=== PATIENT | male | born 1930 | race Caucasian/White ===

== ENCOUNTER 2017-12-24 05:31 | Outpatient (CLI) | payer MEDICARE ==
[~2017-12-24] VITALS: Ht 170.2 cm; Wt 72.6 kg
[2017-12-24] MEDS ORDERED: LISI10TA2 PO (09:59)
[2017-12-24] MEDS ORDERED: OXYB5TAB9 PO (09:59)
[2017-12-24] MEDS ORDERED: OMEP20CA12 PO (11:02)
[2017-12-24] MEDS ORDERED: FURO20TA4 PO (11:02)
[2017-12-24] MEDS ORDERED: POTA10TA6 PO (11:02)
[2017-12-24] MEDS ORDERED: AMLO5TAB7 PO (11:02)
[2017-12-24] MEDS ORDERED: ABIR250T PO (11:05)
[2017-12-25] MEDS ORDERED: CLIN300C3 PO (11:43)
== END 2017-12-24 11:10 | disposition home or self-care (01) ==
LOC: PREOP 05:31
PROVIDERS: ATTEND Otolaryngology Otolaryngology/Facial Plastic Surgery
DX: Z01.818 Encounter for other preprocedural examination (principal)

== ENCOUNTER 2017-12-25 07:40 | Day surgery (SDC) | payer MEDICARE ==
[~2017-12-25] VITALS: Ht 170.2 cm; Wt 72.6 kg
[~2017-12-25 07:40] MED LIST: ABIR250T PO; AMLO5TAB7 PO; FURO20TA4 PO; LISI10TA2 PO; OMEP20CA12 PO; OXYB5TAB9 PO; POTA10TA6 PO
--- OUTSIDE RECORDS SUMMARY | 2017-12-25 07:44 | XMS REPORT | Clinical Summary ---
Author Author [facility] Organization [facility] Address Unknown Phone Unavailable Care Team Providers Care Strike Out Machine Operator Name Role Phone Jesusita Green MD PCP Dieudonne Alberto MD [address] Campbell MD Unavailable Outpatient, Radiologist Unavailable Unavailable Source Comments Some departments are not documenting in the electronic medical record. If you do not see the information that you expected, contact Release of Information in the Health Information Management department at [phone] for further assistance in locating additional records.[facility] Allergies No Known Allergies Current Medications Prescription Sig. Disp. Refills Start End Date Status Date amLODIPine (NORVASC) 2.5 Take 2.5 mg by mouth Active mg tablet daily. omeprazole DR(+) Take 20 mg by mouth daily Active (PRILOSEC) 20 mg capsule before breakfast. lisinopril/hydrochlorothi Take 20 mg by mouth Active azide (ZESTORETIC) 20/25 daily. tablet 20 mg bicalutamide (CASODEX) 50 Take 50 mg by mouth Active mg tablet daily. Take at the same time every day. DOCOSAHEXANOIC ACID/EPA Take 360 mg by mouth. Active (FISH OIL PO) CALCIUM CARBONATE/VITAMIN Take 600 mg by mouth. Active D3 (CALCIUM + D PO) aspirin 81 mg chewable Take 81 mg by mouth Active tablet daily. 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 Family History Medical History Relation Name Comments High Cholesterol Brother High Cholesterol Father High Cholesterol Maternal Grandmother Relation Name Status Comments Brother Father Maternal Grandmother Social History Tobacco Use Types Packs/Day Years Used Date Never Smoker Smokeless Tobacco: Never Used Sex Assigned at Date Recorded Not on file Last Filed Vital Signs Vital Sign Reading Time Taken Blood Pressure 145/73 11/06/2015 8:38 AM CDT Pulse 58 11/06/2015 8:38 AM CDT Temperature 36.6 C (97.9 F) 11/06/2015 8:38 AM CDT Respiratory Rate 16 11/06/2015 8:38 AM CDT Oxygen Saturation 97% 11/06/2015 8:38 AM CDT Inhaled Oxygen - - Concentration Weight 76.2 kg (168 lb) 11/06/2015 8:38 AM CDT Height 172.7 cm (5' 7.99") 11/06/2015 8:38 AM CDT Body Mass Index 25.55 11/06/2015 8:38 AM CDT Plan of Treatment Health Maintenance Due Date Last Done Comments PHYSICAL (COMPREHENSIVE) 02/18/1939 EXAM PERTUSSIS VACCINE 02/18/1943 TETANUS VACCINE 02/18/1949 SHINGLES RECOMBINANT 02/18/1982 VACCINE (1 of 2) PNEUMONIA (PCV13/PPSV23) 02/18/1997 VACCINES (1 of 2 - PCV13) INFLUENZA VACCINE 01/18/2018 Results Not on filefrom Last 3 Months
--- OUTSIDE RECORDS SUMMARY | 2017-12-25 07:44 | XMS REPORT | Referral Summary ---
Author Author [facility] Organization [facility] Address Unknown Phone Unavailable Care Team Providers Care Manager Of Change Name Role Phone Jesusita Green PCP Encounter VC Date(s): 10/29/15 - 10/29/15 [facility] [address] [place] [address] Discharge Disposition: 01-Home or Self Care Attending Physician: Darrell Otero JR, MD Admitting Physician: Darrell Otero JR, MD Vital Signs Most recent to 1 oldest [Reference Range]: Temperature Temporal 36.8 degC Artery [36.3-37.8 (10/29/15 1:56 PM) degC] Peripheral Pulse 85 bpm Rate [60-100 bpm] (10/29/15 1:56 PM) Heart Rate Monitored 78 bpm [60-100 bpm] (10/29/15 3:05 PM) Respiratory Rate 18 br/min [14-20 br/min] (10/29/15 3:05 PM) Blood Pressure 120/81 mmHg [90-140/60-90 mmHg] (10/29/15 3:05 PM) Mean Arterial 93 mmHg Pressure, Cuff (10/29/15 3:05 PM) SpO2 96 % (10/29/15 3:05 PM) Problem List Condition Effective Dates Status Health Status Informant Hypertension(Confirm Active patient ed) Prostate Active patient cancer(Confirmed) Allergies, Adverse Reactions, Alerts No Known Medication Allergies Medications amLODIPine 5 mg, Oral, Daily, 0 Refill(s) Start Date: 10/29/15 Status: Ordered aspirin 81 mg, Oral, Daily, 0 Refill(s) Start Date: 10/29/15 Status: Ordered bicalutamide 50 mg, Oral, q24hr, 0 Refill(s) Start Date: 10/29/15 Status: Ordered Calcium 600+D 2 tablets, Oral, Daily, 0 Refill(s) Start Date: 10/29/15 Status: Ordered Fish Oil 360 mg, Oral, Daily, 0 Refill(s) Start Date: 10/29/15 Status: Ordered lisinopril-hydrochlorothiazide 20 mg-25 mg oral tablet 0.5 tabs, Oral, Daily, # 30 tabs, 0 Refill(s) Start Date: 10/29/15 Status: Ordered omeprazole 20 mg, Oral, Daily, 0 Refill(s) Start Date: 10/29/15 Status: Ordered potassium chloride 20 mEq oral tablet, extended release 20 mEq 1 tabs, Oral, Daily, # 180 tabs, 0 Refill(s) Start Date: 10/29/15 Status: Ordered Results No data available for this section Immunizations No data available for this section Procedures Procedure Date Related Diagnosis Body Site Insertion Dialysis Catheter1 10/29/15 hernia repair removal of right eye steel removed from right eye2 1auto-populated from documented surgical case 2approx 60 years Social History Social History Type Response Smoking Status Never smoker Assessment and Plan No data available for this section
--- OUTSIDE RECORDS SUMMARY | 2017-12-25 07:46 | XMS REPORT ---
Author Edmund Fuentes [facility] Address [address] [place], [place] [id number] Care Team Providers Care Pv Installer Tech Name Role Phone Edmund Galeana PCP Emory Tony PreferredProvider Allergies and Adverse Reactions Name Reaction Notes NO KNOWN DRUG ALLERGIES Plan of Treatment Planned Activity Comments Planned Date Planned Time Plan/Goal PSA TOTAL 04/03/2015 12:00 AM BMP 04/22/2012 12:00 AM PSA total 11/22/2014 12:00 AM Medications Active Name Start Date Estimated Completion Date SIG Comments aspirin 81 mg oral tablet,delayed release (DR/EC) take 1 tablet (81 mg) by oral route once daily Calcium 500 + D 500 mg(1,250mg) -400 unit oral tablet take 1 tablet by oral route daily Zytiga 250 mg oral tablet take 4 tablets (1,000 mg) by oral route once daily ; swallow whole. Do not eat any food for at least 2 hrs before or 1 hr after dose prednisone 5 mg oral tablet take 1 tablet (5 mg) by oral route 2 times per day amlodipine 5 mg oral tablet 04/10/2017 04/05/2018 take 1 tablet (5 mg) by oral route once daily for 90 days furosemide 20 mg oral tablet 04/10/2017 04/05/2018 take 1 tablet (20 mg) by oral route once daily for 90 days Klor-Con 10 10 mEq oral tablet extended release 04/10/2017 04/05/2018 take 1 tablet (10 meq) by oral route once daily with food for 90 days omeprazole 20 mg oral capsule,delayed release(DR/EC) 04/10/2017 07/04/2018 TAKE 1 CAPSULE BY MOUTH ONCE DAILY simvastatin 20 mg oral tablet 04/22/2017 04/12/2019 TAKE 1/2 TABLET BY MOUTH DAILY FOR CHOLESTEROL oxybutynin chloride 5 mg oral tablet 05/25/2017 11/21/2017 TAKE INSTRUCTED BY PHYSICIAN metoclopramide HCl 10 mg oral tablet take 1 tablet by oral route 3 times a day (before meals) Name Start Date Expiration Date SIG Comments Zithromax Z-Justin 250 mg oral tablet 07/06/2009 07/16/2009 take 2 tablets (500 mg) by oral route once daily for 1 day then 1 tablet (250 mg) by oral route once daily for 4 days azithromycin 250 mg oral tablet 07/10/2009 07/15/2009 TAKE 2 TABLETS FIRST DOSE. THEN TAKE ONE TABLET ONCE DAILY TILL ALL TAKEN. Benicar HCT 40-25 mg oral tablet 08/02/2009 12/30/2009 take 1 tablet by oral route once daily acyclovir 800 mg oral tablet 12/19/2009 12/29/2009 take 1 tablet by oral route 5 X for 10 days Medrol (Justin) 4 mg oral tablets,dose pack 12/19/2009 12/24/2009 take as directed for 5 days Bactrim DS 800-160 mg oral tablet 03/25/2011 04/01/2011 take 1 tablet by oral route every 12 hours for 7 days Levaquin 500 mg oral tablet 02/13/2012 02/20/2012 take 1 tablet (500 mg) by oral route once daily for 7 days lisinopril-hydrochlorothiazide 20-25 mg oral tablet 02/13/2012 05/08/2013 take 1 tablet by oral route once daily for 90 days Klor-Con 10 10 mEq oral tablet extended release 04/22/2012 06/21/2012 take 1 tablet by oral route daily for 30 days Tessalon Perles 100 mg oral capsule 10/27/2012 take 1 capsule by oral route 3 times a day as needed Augmentin 875-125 mg oral tablet 10/27/2012 11/06/2012 take 1 tablet by oral route every 12 hours for 10 days Medrol (Justin) 4 mg oral tablets,dose pack 10/27/2012 11/08/2012 take as directed for 6 days Claritin 10 mg oral tablet 11/11/2012 take 1 tablet (10 mg) by oral route once daily Flomax 0.4 mg oral capsule,extended release 24hr 11/11/2012 take 1 capsule (0.4 mg) by oral route once daily 1/2 hour following the same meal each day simvastatin 20 mg oral tablet 04/21/2012 07/20/2012 TAKE 1 TABLET BY MOUTH AT BEDTIME simvastatin 20 mg oral tablet 05/02/2013 TAKE 1 TABLET BY MOUTH AT BEDTIME Casodex 50 mg oral tablet 08/13/2015 01/10/2016 take 1 tablet (50 mg) by oral route once daily for 30 days Linwood 5-325 mg oral tablet take 1 tablet by oral route every 4 hours as needed for pain Levaquin 750 mg oral tablet 09/29/2017 10/04/2017 take 1 tablet (750 mg) by oral route once daily for 5 days albuterol sulfate 2.5 mg /3 mL (0.083 %) inhalation solution for nebulization 09/29/2017 10/13/2017 inhale 3 milliliters (2.5 mg) by nebulization route 3 times per day for 14 days Discontinued Name Start Date Discontinued Date SIG Comments Lisinopril-Hydrochlorothiazide Oral 07/06/2009 Kapidex 60 mg oral capsule,biphase delayed releas 11/12/2009 01/08/2011 take 1 capsule (60 mg) by oral route once daily zolpidem 10 mg oral tablet 01/08/2011 03/25/2011 TAKE 1 TABLET BY MOUTH EVERY DAY AT BEDTIME FOR INSOMNIA promethazine-codeine 6.25-10 mg/5 mL oral syrup 03/25/2011 04/16/2011 take 5 milliliters by oral route every 6 hours as needed, not to exceed 30 mL in 24 hours Zofran (as hydrochloride) 4 mg oral tablet 04/16/2011 take 1 tab every 8hrs prn allopurinol 100 mg oral tablet 12/06/2015 take 1 tablet (100 mg) by oral route once daily lisinopril-hydrochlorothiazide 20-25 mg oral tablet 05/16/2013 04/10/2017 TAKE 1 TABLET BY MOUTH DAILY amlodipine 2.5 mg oral tablet 04/10/2017 take 1 tablet (2.5 mg) by oral route once daily bicalutamide 50 mg oral tablet 04/10/2017 take 1 tablet (50 mg) by oral route once daily Fish Oil [place] 3-6-9 300-1,000 mg oral capsule,delayed release(DR/EC) 04/10 take 1 capsule by oral route daily potassium chloride 20 mEq oral tablet extended release 04/10/2017 take 1 tablet (20 meq) by oral route once daily with food Problem List Description Status Onset Hyperlipidemia Active Hypertension Active Malignant neoplasm prostate Active dx-2009 Elevated prostate specific antigen (PSA) Active 11/22/2014 Adenocarcinoma of prostate, stage 4 Active 12/26/2015 Frequency of micturition Active 07/08/2016 Nocturia Active 07/08/2016 Urge urinary incontinence Active 08/13/2016 Incontinence Active 09/02/2016 SCC (squamous cell carcinoma) Active 10/30/2017 Arm lesion Active 10/30/2017 Vital Signs Date Time BP-Sys(mm[Hg] BP-Jeanne(mm[Hg]) HR(bpm) RR(rpm) Temp WT HT HC BMI BSA BMI Percentile O2 Sat(%) 11/13/2017 8:43:00 AM 125 mmHg 72 mmHg 67 bpm 20 rpm 97.2 F 168.5 lbs 67 in 26.3906 kg/m 1.9008 m 10/30/2017 11:11:00 AM 114 mmHg 71 mmHg 82 bpm 20 rpm 97.8 F 169 lbs 67 in 26.47 kg/m2 1.90 m2 09/29/2017 9:29:00 AM 120 mmHg 80 mmHg 98 bpm 20 rpm 97.5 F 172.125 lbs 68 in 26.1712 kg/m 1.9354 m 98 % 09/23/2017 10:01:00 AM 152 mmHg 88 mmHg 85 bpm 20 rpm 97.5 F 172 lbs 68 in 26.1522 kg/m 1.93 m2 97 % 09/23/2017 8:49:00 AM 130 mmHg 82 mmHg 78 bpm 18 rpm 97.3 F 173 lbs 68 in 26.30 kg/m2 1.9403 m 87 % 09/22/2017 8:23:00 AM 130 mmHg 78 mmHg 82 bpm 20 rpm 97.4 F 173 lbs 68 in 26.3043 kg/m 1.94 m2 96 % 04/10/2017 10:26:00 AM 110 mmHg 80 mmHg 92 bpm 16 rpm 98.4 F 176 lbs 68 in 26.76 kg/m2 1.96 m2 97 % 08/13/2016 9:48:00 AM 134 mmHg 98 mmHg 98 bpm 20 rpm 97 F 180 lbs 68 in 27.3686 kg/m 1.9792 m 96 % 07/08/2016 8:07:00 AM 122 mmHg 72 mmHg 85 bpm 18 rpm 97.1 F 175 lbs 68 in 26.61 kg/m2 1.95 m2 98 % 12/07/2015 11:22:00 AM 100 mmHg 73 mmHg 100 bpm 16 rpm 97.4 F 169 lbs 68 in 25.6961 kg/m 1.9178 m 11/22/2014 10:03:00 AM 175 lbs 68 in 26.61 kg/m2 1.95 m2 08/15/2013 9:02:00 AM 140 mmHg 80 mmHg 88 bpm 16 rpm 96.2 F 184 lbs 68 in 27.9768 kg/m 2.0011 m 94 % 11/11/2012 3:16:00 PM 128 mmHg 82 mmHg 81 bpm 18 rpm 96.4 F 181 lbs 68 in 27.52 kg/m2 1.98 m2 97 % 10/27/2012 8:53:00 AM 130 mmHg 93 mmHg 95 bpm 18 rpm 97.7 F 183 lbs 68 in 27.8248 kg/m 1.9956 m 97 % 04/22/2012 10:02:00 AM 130 mmHg 80 mmHg 97 bpm 18 rpm 97.8 F 181.375 lbs 68 in 27.58 kg/m2 1.99 m2 97 % 02/13/2012 8:36:00 AM 136 mmHg 84 mmHg 72 bpm 18 rpm 97.6 F 185 lbs 68 in 28.1289 kg/m 2.0065 m 04/16/2011 9:03:00 AM 124 mmHg 82 mmHg 77 bpm 16 rpm 96.7 F 182.25 lbs 68 in 27.71 kg/m2 1.99 m2 97 % 03/25/2011 10:03:00 AM 138 mmHg 91 mmHg 20 bpm 78 rpm 97.4 F 187.375 lbs 67 in 29.3468 kg/m 2.0044 m 98 % 01/08/2011 8:49:00 AM 118 mmHg 70 mmHg 64 bpm 20 rpm 98.1 F 183 lbs 68 in 27.82 kg/m2 2.00 m2 12/19/2009 2:28:00 PM 130 mmHg 90 mmHg 80 bpm 20 rpm 96.4 F 188 lbs 12/13/2009 9:12:00 AM 130 mmHg 80 mmHg 68 bpm 20 rpm 97.3 F 188 lbs 11/12/2009 10:47:00 AM 108 mmHg 78 mmHg 88 bpm 18 rpm 96.3 F 183 lbs 68 in 27.8248 kg/m 1.9956 m 96 % 07/06/2009 8:34:00 AM 122 mmHg 74 mmHg 84 bpm 96.4 F 185 lbs 06/25/2009 10:20:00 AM 132 mmHg 80 mmHg 72 bpm 16 rpm 97.1 F 183 lbs 06/07/2009 10:20:00 AM 138 mmHg 90 mmHg 76 bpm 18 rpm 96.3 F 183 lbs Social History Name Description Comments Tobacco Never smoker denies alcohol use Lives with spouse peñaloza History of Procedures Date Ordered Description Order Status 01/02/2011 12:00 AM ROUTINE VENIPUNCTURE Reviewed 01/02/2011 12:00 AM COMPLETE CBC W/AUTO DIFF WBC Reviewed 01/02/2011 12:00 AM COMPREHEN METABOLIC PANEL Reviewed 01/02/2011 12:00 AM LIPID PANEL Reviewed 01/02/2011 12:00 AM ASSAY OF PSA TOTAL Reviewed 03/27/2015 12:00 AM ASSAY OF PSA TOTAL Reviewed 07/30/2015 12:00 AM ASSAY OF PSA TOTAL Reviewed 06/07/2009 12:00 AM COMPLETE CBC W/AUTO DIFF WBC Reviewed 06/07/2009 12:00 AM COMPREHEN METABOLIC PANEL Reviewed 06/07/2009 12:00 AM LIPID PANEL Reviewed 04/16/2011 12:00 AM ASSAY OF BLOOD/URIC ACID Reviewed 07/08/2016 12:00 AM US URINE CAPACITY MEASURE Reviewed 07/08/2016 9:04 AM URINALYSIS AUTO W/O SCOPE Reviewed 08/11/2016 12:00 AM ASSAY OF PSA TOTAL Reviewed 08/13/2016 10:31 AM URINALYSIS AUTO W/O SCOPE Reviewed 05/11/2017 12:00 AM ASSAY OF PSA TOTAL Reviewed 09/22/2017 12:00 AM LIPID PANEL Reviewed 09/23/2017 12:00 AM Lupron 7.5mg Reviewed 09/29/2017 12:00 AM RADIOLOGIC EXAM CHEST 2 VIEWS FRONTAL&LATERAL Returned 09/29/2017 12:00 AM Solu-Medrol, Up to 125 Mg [facility]# 0097-4133-85 Reviewed 08/15/2013 12:00 AM THER/PROPH/DIAG INJ SC/IM Reviewed 08/15/2013 12:00 AM Decadron, Per 1 Mg [facility]# [address]-68 Reviewed 08/15/2013 12:00 AM Depo-Medrol, Per 80 Mg [facility]#7185-6586-67 Reviewed 11/07/2013 3:16 PM THER/PROPH/DIAG INJ SC/IM Reviewed 11/07/2013 3:16 PM Lupron Depot 3.75 Mg Reviewed 03/13/2014 12:00 AM ASSAY OF PSA TOTAL Reviewed 07/17/2014 12:00 AM ASSAY OF PSA TOTAL Reviewed Results Summary Date and Description Results 06/07/2009 10:54 AM HDL 41.0 mg/dLTRIGLYCERIDES 242.0 mg/dLLDL (CALC) 102.0 mg/ dLHDL 41.0 mg/dLTRIGLYCERIDES 242.0 mg/dLTOT CHOL/HDL 4.7 CHOLESTEROL 191 mg/ dLGLUCOSE 96 SODIUM 144.0 mmol/LPOTASSIUM 3.50 mmol/LCHLORIDE 101.0 mmol/LCO2 29.0 mmol/LBUN 20.0 mg/dLCREATININE 0.80 mg/dLSGOT/AST 25.0 IU/LSGPT/ALT 21.0 IU /LALK PHOS 87.0 IU/LTOTAL PROTEIN 6.60 g/dLALBUMIN 4.20 g/dLTOTAL BILI 0.70 mg/ dLCALCIUM 9.80 mg/dLAGE 79 GFR NonAA 94 GFR AA 114 eGFR >60 mL/min/1.73 meGFR AA * >60 01/06/2011 8:06 AM GLUCOSE 99.0 mg/dLSODIUM 139.0 mmol/LPOTASSIUM 3.40 mmol/ LCHLORIDE 102.0 mmol/LCO2 28.0 mmol/LBUN 20.0 mg/dLCREATININE 0.90 mg/dLSGOT/ AST 14.0 IU/LSGPT/ALT 12.0 IU/LALK PHOS 90.0 IU/LTOTAL PROTEIN 6.60 g/dLALBUMIN 3.90 g/dLTOTAL BILI 0.70 mg/dLCALCIUM 9.10 mg/dLAGE 80 GFR NonAA 82 GFR AA 99 eGFR >60 mL/min/1.73 m2eGFR AA* >60 TRIGLYCERIDES 176.0 mg/dLCHOLESTEROL 150.0 mg/dLHDL 35.0 mg/dLTOT CHOL/HDL 4.3 LDL (CALC) 80.0 mg/dLWBC 8.1 RBC 4.25 HGB 14.50 g/dLHCT 41.10 %MCV 97.0 fLMCH 34.10 pgMCHC 35.30 g/dLRDW SD 49 RDW CV 14.0 %MPV 9.80 fLPLT 136 NRBC# 0.00 NRBC% 0.0 %NEUT 72.80 %%LYMP 18.70 %%MONO 6.70 %%EOS 1.60 %%BASO 0.20 %#NEUT 5.88 #LYMP 1.51 #MONO 0.54 #EOS 0.13 #BASO 0.02 MANUAL DIFF NOT IND PSA TOTAL 0.680 ng/mL 04/16/2011 10:00 AM URIC ACID 6.8 mg/dL 07/11/2014 8:48 AM PSA TOTAL 4.030 ng/mL 11/14/2014 4:08 PM PSA TOTAL 1.380 ng/mL 08/07/2015 9:10 AM PSA TOTAL 3.70 ng/mL 07/08/2016 9:04 AM Clarity Ur CLEAR Color Ur --- Glucose Ur-sCnc -VE Bilirub Ur Ql Strip -VE Ketones Ur Ql Strip -VE Sp Gr Ur Qn 1015 Hgb Ur Ql Strip -VE pH Ur-LsCnc 5.5 Prot Ur Ql Strip -VE Urobilinogen Ur-mCnc -VE Nitrite Ur Ql Strip - VE WBC Est Ur Ql Strip -VE 08/11/2016 11:00 AM PSA TOTAL 0.450 ng/mL 08/13/2016 10:31 AM Clarity Ur CLEAR Color Ur ---- Glucose Ur-sCnc -VE Bilirub Ur Ql Strip -VE Ketones Ur Ql Strip -VE Sp Gr Ur Qn 1015 Hgb Ur Ql Strip -VE pH Ur-LsCnc 5.5 Prot Ur Ql Strip -VE Urobilinogen Ur-mCnc -VE Nitrite Ur Ql Strip - VE WBC Est Ur Ql Strip -VE 05/15/2017 9:26 AM PSA TOTAL 0.420 ng/mL 09/29/2017 8:26 AM TRIGLYCERIDES 132.0 mg/dLCHOLESTEROL 144.0 mg/dLHDL 48.0 mg/ dLTOT CHOL/HDL 3.0 LDL (CALC) 70.0 mg/dL History Of Immunizations Name Date Admin Mfg Name Mfg Code Trade Name Lot# Route Inj Vis Given Vis Pub CVX Influenza 02/18/2017 GlaxoSmithKline SKB FLUZONE-HIGH DOSE Not Entered Not Entered 04/20/2018 04/20/2018 135 Pneumococcal 01/16/2016 Not Entered NE PREVNAR 13 Not Entered Not Entered 04/10/2017 04/20/2018 133 History of Past Illness Name Date of Onset Comments Hypertension Hyperlipidemia Hypertension Jun 07 2009 10:23AM Hyperlipidemia, unspecified Jun 07 2009 10:23AM Osteoarthritis Jun 25 2009 10:28AM Upper Respiratory Infection Jul 06 2009 8:37AM Hypertension Jul 06 2009 8:37AM Esophageal Reflux Nov 12 2009 11:01AM Hypertension Dec 13 2009 9:13AM Esophageal Reflux Dec 13 2009 9:13AM Herpes Zoster Dec 19 2009 2:34PM Malignant neoplasm prostate dx-2009 Elevated prostate specific antigen (PSA) 11/22/2014 Adenocarcinoma of prostate, stage 4 12/26/2015 Frequency of micturition 07/08/2016 Nocturia 07/08/2016 Urge urinary incontinence 08/13/2016 Incontinence 09/02/2016 Hypertension Jan 02 2011 8:42AM Hyperlipidemia Jan 02 2011 8:42AM Prostate Cancer Jan 02 2011 8:42AM Hypertension Jan 08 2011 8:50AM Hyperlipidemia, unspecified Jan 08 2011 8:50AM Esophageal Reflux Jan 08 2011 8:50AM SCC (squamous cell carcinoma) 10/30/2017 Arm lesion 10/30/2017 left forearm Left Otitis Media, Acute Mar 25 2011 10:09AM Upper Respiratory Infections Mar 25 2011 10:09AM Gout Apr 16 2011 9:05AM Hypertension Feb 13 2012 8:40AM Sinusitis Feb 13 2012 8:40AM Hypokalemia Apr 22 2012 10:05AM Upper Respiratory Infections Oct 27 2012 8:58AM Allergic Rhinitis Nov 11 2012 3:19PM Nocturia Nov 11 2012 3:19PM Allergic Rhinitis Aug 15 2013 9:04AM Cancer of prostate Mar 13 2014 9:08AM Cancer of prostate Jul 17 2014 9:29AM Cancer of prostate Jul 17 2014 9:33AM Malignant neoplasm prostate Nov 22 2014 10:04AM Elevated prostate specific antigen (PSA) Nov 22 2014 10:04AM Cancer of prostate Nov 22 2014 2:06PM Elevated PSA Mar 27 2015 11:19AM Cancer of prostate Mar 27 2015 11:19AM Elevated PSA Apr 03 2015 10:07AM Cancer of prostate Apr 03 2015 10:07AM Adenocarcinoma of prostate Apr 03 2015 10:06AM Adenocarcinoma of prostate Jul 30 2015 9:48AM Elevated prostate specific antigen (PSA) Jul 30 2015 9:48AM Adenocarcinoma of prostate Aug 13 2015 2:27PM Abnormal PSA Aug 13 2015 2:27PM Prostate cancer Dec 07 2015 11:25AM Prostate cancer Dec 07 2015 11:33AM Adenocarcinoma of prostate, stage 4 Dec 26 2015 8:31AM Adenocarcinoma of prostate Apr 29 2016 11:15AM Urinary frequency Jul 08 2016 8:37AM Nocturia Jul 08 2016 8:37AM Nocturia Jul 08 2016 8:10AM Frequency of micturition Jul 08 2016 8:10AM Urgency of urination Jul 08 2016 8:10AM Adenocarcinoma of prostate Jul 08 2016 8:10AM Frequency of micturition Jul 10 2016 8:33PM Nocturia Jul 10 2016 8:33PM Adenocarcinoma of prostate Jul 10 2016 8:33PM Cancer of prostate Aug 11 2016 8:18AM Drug therapy Aug 11 2016 8:18AM Nocturia Aug 13 2016 9:52AM Urge urinary incontinence Aug 13 2016 9:52AM Adenocarcinoma of prostate Aug 13 2016 9:52AM Adenocarcinoma of prostate Sep 02 2016 11:24AM Frequency of micturition Sep 02 2016 11:24AM Urge incontinence of urine Sep 02 2016 11:24AM Adenocarcinoma of prostate Jan 13 2017 8:01AM Adenocarcinoma of prostate May 11 2017 3:14PM Adenocarcinoma of prostate May 19 2017 8:32AM Well adult exam Apr 10 2017 10:29AM Pure hypercholesterolemia Sep 22 2017 8:27AM Essential Hypertension Sep 22 2017 8:27AM Establishing care with new doctor, encounter for Sep 22 2017 8:27AM Prostate cancer Sep 23 2017 8:51AM Partial small bowel obstruction Sep 23 2017 10:02AM Acute bronchitis, unspecified organism Sep 29 2017 9:33AM Cough Sep 29 2017 9:33AM Arm lesion Oct 30 2017 11:18AM SCC (squamous cell carcinoma) Oct 30 2017 11:18AM Payers Insurance Name Company Name Plan Name Plan Number Policy Number Policy Group Number Start Date Medicare RHC Medicare RHC [id number] N/A [facility] [id number] Friday, 2008 Medicare Part A Medicare Part A [id number] N/A Medicare Part A Medicare - Lab/Xray [id number] N/A Medicare Part B Medicare Of [place] [id number] Thursday, January [id number] History of Encounters Visit Date Visit Type Provider 11/13/2017 Procedures Edmund Galeana DO 10/30/2017 Procedures Edmund Galeana DO 09/29/2017 Office visit Tierra Fox REPAIRER CONTROLLER TESTER 09/23/2017 Office visit Roland Levi MD 09/23/2017 Office visit Amadeo Nielsen MD 09/22/[address] Emory Tony MD 09/16/2017 Hospital Ginette Navarrete MD 09/16/2017 [facility] Roland Levi MD 05/19/2017 Office visit Juany Donahue MD 04/10/2017 Office visit Tammy Arvizu MD 01/13/2017 Office visit V John Donahue MD 09/02/2016 Procedures Juany Donahue MD 08/13/2016 Office visit V John Donahue MD 07/08/2016 Office visit Juany Donahue MD 04/29/2016 Office visit Juany Donahue MD 12/26/2015 Office visit Juany Donahue MD 12/07/2015 Procedures Edmund Galeana DO 08/13/2015 Office visit V John Donahue MD 08/07/2015 Voided V John Donahue MD 04/03/2015 Office visit Juany Donahue MD 11/22/2014 Office visit Juany Donahue MD 07/17/2014 Office visit Juany Donahue MD 03/13/2014 Office visit Juany Donahue MD 11/07/2013 Office visit Juany Donahue MD 09/19/2013 [facility] Ginette Navarrete MD 08/15/2013 Office visit Faizan Raphael REPAIRER CONTROLLER TESTER 11/11/2012 Office visit Yecenia Alexander REPAIRER CONTROLLER TESTER 10/27/2012 Office visit Celena Crane REPAIRER CONTROLLER TESTER 04/22/2012 Office visit Sean Shell MD 04/14/2012 [facility] Lola Paz MD 04/13/2012 [facility] Lola Paz MD 04/12/2012 [facility] Ginette Navarrete MD 04/12/2012 [facility] Lola Paz MD 02/13/2012 Office visit Sean Shell MD 04/16/2011 Office visit Apryl Branham MD 03/25/2011 Office visit Yecenia Alexander REPAIRER CONTROLLER TESTER 01/08/2011 Office visit Sean Shell MD 12/19/2009 Office visit Salima RODRIGUEZ 12/13/2009 Office visit Sean Shell MD 11/12/2009 Office visit Sean Shell MD 07/06/2009 Office visit Sean Shell MD 06/25/2009 Office visit Sean Shell MD 06/07/2009 Office visit Sean Shell MD
--- OUTSIDE RECORDS SUMMARY | 2017-12-25 07:47 | XMS REPORT ---
Author Edmund Fuentes [facility] Address [address] [place], [place] [id number] Care Team Providers Care Chips Screen Tender Name Role Phone Edmund Galeana PCP Emory [...] oral route once daily for 30 days [place] 5-325 mg oral tablet take 1 tablet [...] by oral route once daily Fish Oil [place] 3-6-9 300-1,000 mg oral capsule,delayed release(DR/EC) 04/10 [...] HC BMI BSA BMI Percentile O2 Sat(%) 10/30/2017 11:11:00 AM 114 mmHg 71 mmHg 82 bpm 20 rpm 97.8 F 169 lbs 67 in 26.4689 kg/m 1.9036 m 09/29/2017 9:29:00 AM 120 mmHg 80 mmHg 98 bpm 20 rpm 97.5 F 172.125 lbs 68 in 26.17 kg/m2 1.94 m2 98 % 09/23/2017 10:01:00 AM 152 mmHg 88 mmHg 85 bpm 20 rpm 97.5 F 172 lbs 68 in 26.1522 kg/m 1.9347 m 97 % 09/23/2017 8:49:00 AM 130 mmHg 82 mmHg 78 bpm 18 rpm 97.3 F 173 lbs 68 in 26.30 kg/m2 1.94 m2 87 % 09/22/2017 8:23:00 AM 130 mmHg 78 mmHg 82 bpm 20 rpm 97.4 F 173 lbs 68 in 26.3043 kg/m 1.9403 m 96 % 04/10/2017 10:26:00 AM 110 mmHg [...] 12:00 AM Solu-Medrol, Up to 125 Mg [facility]# 0533-2812-93 Reviewed 08/15/2013 12:00 AM THER/PROPH/DIAG INJ SC/IM Reviewed 08/15/2013 12:00 AM Decadron, Per 1 Mg [facility]# [address]-27 Reviewed 08/15/2013 12:00 AM Depo-Medrol, Per 80 Mg [facility]#6719-7878-41 Reviewed 11/07/2013 3:16 PM THER/PROPH/DIAG INJ SC/IM [...] Vis Given Vis Pub CVX Influenza 02/18/2017 GlaxoSmScreenheroine SKB FLUZONE-HIGH DOSE Not Entered Not Entered [...] Number Start Date Medicare RHC Medicare RHC [id number] N/A [facility] [id number] Friday, 2008 Medicare Part A Medicare Part A [id number] N/A Medicare Part A Medicare - Lab/Xray [id number] N/A Medicare Part B Medicare Of [place] [id number] Thursday, January 181996 History of Encounters Visit Date Visit Type Provider 10/30/2017 Procedures Edmund Galeana DO 09/29/2017 Office visit Tierra Fox POWER GENERATION TECHNICIAN 09/23/2017 Office visit Roland Levi MD 09/23/2017 Office visit Amadeo Nielsen MD 09/22/[address] Emory Tony MD 09/16/2017 [facility] Ginette Navarrete MD 09/16/2017 [facility] Roland Levi MD 05/19/2017 Office visit Juany Donahue MD 04/10/2017 Office visit Tammy Arvizu MD 01/13/2017 Office visit Juany Donahue MD 09/02/2016 Procedures Juany Donahue MD 08/13/2016 Office visit Juany Donahue MD 07/08/2016 Office visit Juany Donahue MD 04/29/2016 Office visit Juany Donahue MD 12/26/2015 Office visit Juany Donahue MD 12/07/2015 Procedures Edmund Galeana DO 08/13/2015 Office visit Juany Donahue MD 08/07/2015 Voided Juany Donahue MD 04/03/2015 Office visit Juany Donahue MD 11/22/2014 Office visit Juany Donahue MD 07/17/2014 Office visit Juany Donahue MD 03/13/2014 Office visit Juany Donahue MD 11/07/2013 Office visit Juany Donahue MD 09/19/2013 [facility] Ginette Navarrete MD 08/15/2013 Office visit Faizan Raphael APRN 11/11/2012 Office visit Yecenia Alexander POWER GENERATION TECHNICIAN 10/27/2012 Office visit Celena Crane POWER GENERATION TECHNICIAN 04/22/2012 Office visit Sean Shell MD 04/14/2012 Hospital Lola Paz MD 04/13/2012 [facility] Lola Paz MD 04/12/2012 [facility] Ginette Navarrete MD 04/12/2012 [facility] Lola Paz MD 02/13/2012 Office visit Sean Shell MD 04/16/2011 Office visit Apryl Branham MD 03/25/2011 Office visit Yecenia Alexander POWER GENERATION TECHNICIAN 01/08/2011 Office visit Sean hSell MD 12/19/2009 Office visit Salima RODRIGUEZ 12/13/2009 Office visit Sean Shell MD 11/12/2009 Office visit Sean Shell MD 07/06/2009 Office visit Sean Shell MD 06/25/2009 Office visit Sean Shell MD 06/07/2009 Office visit Sean Shell MD
--- OUTSIDE RECORDS SUMMARY | 2017-12-25 07:47 | XMS REPORT ---
Author Edmund Fuentes [facility] Address [address] [place], [place] [id number] Care Team Providers Care Plastics Engineer Name Role Phone Edmund Galeana PCP Emory [...] oral route once daily for 30 days [place] 5-325 mg oral tablet take 1 tablet [...] by oral route once daily Fish Oil [place] 3-6-9 300-1,000 mg oral capsule,delayed release(DR/EC) 04/10 [...] 12:00 AM Solu-Medrol, Up to 125 Mg [facility]# 2765-6101-97 Reviewed 08/15/2013 12:00 AM THER/PROPH/DIAG INJ SC/IM Reviewed 08/15/2013 12:00 AM Decadron, Per 1 Mg [facility]# [address]-48 Reviewed 08/15/2013 12:00 AM Depo-Medrol, Per 80 Mg [facility]#3044-5738-79 Reviewed 11/07/2013 3:16 PM THER/PROPH/DIAG INJ SC/IM [...] Vis Given Vis Pub CVX Influenza 02/18/2017 GlaxoSmNavitaine SKB FLUZONE-HIGH DOSE Not Entered Not Entered [...] Number Start Date Medicare RHC Medicare RHC [id number] [id number] Friday, 2008 Medicare Part A Medicare Part A [id number] N/A Medicare Part A Medicare - Lab/Xray [id number] N/A Medicare Part B Medicare Of [place] [id number] Thursday, January 181996 History of Encounters Visit Date Visit Type Provider 10/30/2017 Procedures Edmund Galeana DO 09/29/2017 Office visit Tierra Fox REHAB TRAINER 09/23/2017 Office visit Roland Levi MD 09/23/2017 Office visit Amadeo Nielsen MD 09/22/[address] Emory Tony MD 09/16/2017 [facility] Ginette Navarrete MD 09/16/2017 [facility] Roland Levi MD 05/19/2017 Office [...] 11/07/2013 Office visit Juany Donahue MD 09/19/2013 [facility] Ginette Navarrete MD 08/15/2013 Office visit Faizan Raphael APRN 11/11/2012 Office visit Yecenia Alexander REHAB TRAINER 10/27/2012 Office visit Celena Crane REHAB TRAINER 04/22/2012 Office visit Sean Shell MD 04/14/2012 Hospital Lola Paz MD 04/13/2012 [facility] Lola Paz MD 04/12/2012 [facility] Ginette Navarrete MD 04/12/2012 [facility] Lola Paz MD 02/13/2012 Office visit Sean Shell MD 04/16/2011 Office visit Apryl Branham MD 03/25/2011 Office visit Yecenia Alexander REHAB TRAINER 01/08/2011 Office visit Sean Shell MD 12/19/2009 Office visit Salima RODRIGUEZ 12/13/2009 Office visit Sean Shell MD 11/12/2009 Office visit Sean Shell MD 07/06/2009 Office visit Sean Shell MD 06/25/2009 Office visit Sean Shell MD 06/07/2009 Office visit Sean Shell MD
--- OUTSIDE RECORDS SUMMARY | 2017-12-25 07:48 | XMS REPORT ---
Author Edmund Fuentes [facility] Address [address] [place], [place] [id number] Care Team Providers Care Technical Operations Manager Name Role Phone Edmund Galeana PCP Emory [...] oral route once daily for 30 days [place] 5-325 mg oral tablet take 1 tablet [...] by oral route once daily Fish Oil [place] 3-6-9 300-1,000 mg oral capsule,delayed release(DR/EC) 04/10 [...] to 125 Mg [facility]# 0128-7622-67 Reviewed 08/15/2013 12:00 AM THER/PROPH/DIAG INJ SC/IM Reviewed 08/15/2013 12:00 AM Decadron, Per 1 Mg [facility]# [address]-78 Reviewed 08/15/2013 12:00 AM Depo-Medrol, Per 80 Mg [facility]#2137-1832-22 Reviewed 11/07/2013 3:16 PM THER/PROPH/DIAG INJ SC/IM [...] Vis Given Vis Pub CVX Influenza 02/18/2017 [facility] SKB FLUZONE-HIGH DOSE Not Entered Not Entered [...] Number Start Date Medicare RHC Medicare RHC [id number] [id number] Friday, 2008 Medicare Part A Medicare Part A [id number] N/A Medicare Part A Medicare - Lab/Xray [id number] N/A Medicare Part B Medicare Of [place] [id number] Thursday, January 181996 History of Encounters Visit Date Visit Type Provider 10/30/2017 Procedures Edmund Galeana DO 09/29/2017 Office visit Tierra Fox CLINICAL REVIEW NURSE 09/23/2017 Office visit Roland Levi MD 09/23/2017 Office visit Amadeo Nielsen MD 09/22/[address] Emory Tony MD 09/16/2017 [facility] Ginette Navarrete MD 09/16/2017 [facility] Roland Levi MD 05/19/2017 Office visit [...] 11/07/2013 Office visit Juany Donahue MD 09/19/2013 [facility] Ginette Navarrete MD 08/15/2013 Office visit Faizan Raphael APRN 11/11/2012 Office visit Yecenia Alexander CLINICAL REVIEW NURSE 10/27/2012 Office visit Celena Crane CLINICAL REVIEW NURSE 04/22/2012 Office visit Sean Shell MD 04/14/2012 Hospital Lola Paz MD 04/13/2012 [facility] Lola Paz MD 04/12/2012 [facility] Ginette Navarrete MD 04/12/2012 [facility] Lola Paz MD 02/13/2012 Office visit Sean Shell MD 04/16/2011 Office visit Apryl Branham MD 03/25/2011 Office visit Yecenia Alexander CLINICAL REVIEW NURSE 01/08/2011 Office visit Sean Shell MD 12/19/2009 Office visit Salima RODRIGUEZ 12/13/2009 Office visit Sean Shell MD 11/12/2009 Office visit Sean Shell MD 07/06/2009 Office visit Sean Shell MD 06/25/2009 Office visit Sean Shell MD 06/07/2009 Office visit Sean Shell MD
--- OUTSIDE RECORDS SUMMARY | 2017-12-25 07:49 | XMS REPORT ---
Author Edmund Fuentes [facility] Address [address] [place], [place] [phone] Care Team Providers Care Process Validation Engineer Name Role Phone Edmund Galeana PCP [...] oral route once daily for 30 days [place] 5-325 mg oral tablet take 1 tablet [...] by oral route once daily Fish Oil [place] 3-6-9 300-1,000 mg oral capsule,delayed release(DR/EC) 04/10 [...] 12:00 AM Solu-Medrol, Up to 125 Mg [facility]# 4294-7749-73 Reviewed 08/15/2013 12:00 AM THER/PROPH/DIAG INJ SC/IM Reviewed 08/15/2013 12:00 AM Decadron, Per 1 Mg [facility]# [address]-90 Reviewed 08/15/2013 12:00 AM Depo-Medrol, Per 80 Mg [facility]#5487-7846-51 Reviewed 11/07/2013 3:16 PM THER/PROPH/DIAG INJ SC/IM [...] Vis Given Vis Pub CVX Influenza 02/18/2017 GlaxoSmGroove Biopharmaine SKB FLUZONE-HIGH DOSE Not Entered Not Entered [...] Number Start Date Medicare RHC Medicare RHC [id number] [id number] Friday, 2008 Medicare Part A Medicare Part A [id number] N/A Medicare Part A Medicare - Lab/Xray [id number] N/A Medicare Part B Medicare Of [place] [id number] Thursday, January 181996 History of Encounters Visit Date Visit Type Provider 10/30/2017 Procedures Edmund Galeana DO 09/29/2017 Office visit Tierra Fox PHYSICAL THERAPY MANAGER 09/23/2017 Office visit Roland Levi MD 09/23/2017 Office visit Amadeo Nielsen MD 09/22/[address] Emory Tony MD 09/16/2017 [facility] Ginette Navarrete MD 09/16/2017 [facility] Roland Levi MD 05/19/2017 Office visit [...] 11/07/2013 Office visit Juany Donahue MD 09/19/2013 [facility] Ginette Navarrete MD 08/15/2013 Office visit Faizan Raphael APRN 11/11/2012 Office visit Yecenia Alexander PHYSICAL THERAPY MANAGER 10/27/2012 Office visit Celena Crane PHYSICAL THERAPY MANAGER 04/22/2012 Office visit Sean Shell MD 04/14/2012 Hospital Lola Paz MD 04/13/2012 [facility] Lola Paz MD 04/12/2012 [facility] Ginette Navarrete MD 04/12/2012 [facility] Lola Paz MD 02/13/2012 Office visit Sean Shell MD 04/16/2011 Office visit Apryl Branham MD 03/25/2011 Office visit Yecenia Alexander PHYSICAL THERAPY MANAGER 01/08/2011 Office visit Sean Shell MD 12/19/2009 Office visit Salima RODRIGUEZ 12/13/2009 Office visit Sean Shell MD 11/12/2009 Office visit Sean Shell MD 07/06/2009 Office visit Sean Shell MD 06/25/2009 Office visit Sean Shell MD 06/07/2009 Office visit Sean Shell MD
[2017-12-25 07:50] VITALS: BP 128/83
--- OUTSIDE RECORDS SUMMARY | 2017-12-25 07:50 | XMS REPORT ---
Author Author Tammy Arvizu Organization [facility] Address [address] [place], [place] [address] Care Team Providers Care Groundskeeper Name Role Phone Tammy Arvizu PCP Tammy Arvizu PreferredProvider Allergies and Adverse Reactions Name Reaction Notes NO KNOWN DRUG ALLERGIES Plan of Treatment Planned Activity Comments Planned Date Planned Time Plan/Goal PSA TOTAL 04/03/2015 12:00 AM PSA TOTAL 05/11/2017 12:00 AM BMP 04/22/2012 12:00 AM PSA [...] TAKE 1 CAPSULE BY MOUTH ONCE DAILY oxybutynin chloride 5 mg oral tablet 04/10/2017 04/05/2018 TAKE INSTRUCTED BY PHYSICIAN for 90 days simvastatin 20 mg oral tablet 04/22/2017 04/12/2019 TAKE 1/2 TABLET BY MOUTH DAILY FOR CHOLESTEROL Name Start Date Expiration Date SIG Comments [...] oral route once daily for 30 days [place] 5-325 mg oral tablet take 1 tablet by oral route every 4 hours as needed for pain Discontinued Name Start Date Discontinued Date SIG [...] by oral route once daily Fish Oil [place] 3-6-9 300-1,000 mg oral capsule,delayed release(DR/EC) 04/10 take 1 capsule by oral route daily potassium chloride 20 mEq oral tablet extended release 04/10/2017 take 1 tablet (20 meq) by oral route once daily with food Problem List Description Status Onset Hyperlipidemia Active Hypertension Active Malignant neoplasm prostate Active dx-2008 Elevated prostate specific antigen (PSA) Active 11/22/2014 Prostate cancer Active 12/07/2015 Adenocarcinoma of prostate, stage 4 Active 12/26/2015 Adenocarcinoma of prostate Active 04/29/2016 Urgency of urination Active 07/08/2016 Frequency of micturition Active 07/08/2016 Nocturia Active 07/08/2016 Urge urinary incontinence Active 08/13/2016 Incontinence Active 09/02/2016 Urge incontinence of urine Active 09/02/2016 Vital Signs Date Time BP-Sys(mm[Hg] BP-Jeanne(mm[Hg]) HR(bpm) RR(rpm) Temp WT HT HC BMI BSA BMI Percentile O2 Sat(%) 04/10/2017 10:26:00 AM 110 mmHg 80 mmHg [...] rpm 96.3 F 183 lbs 68 in 27.82 kg/m2 1.9956 m 96 % 07/06/2009 8:34:00 AM [...] 10:31 AM URINALYSIS AUTO W/O SCOPE Reviewed 08/15/2013 12:00 AM THER/PROPH/DIAG INJ SC/IM Reviewed 08/15/2013 12:00 AM Decadron, Per 1 Mg [facility] 2[facility]# [address]-24 Reviewed 08/15/2013 12:00 AM Depo-Medrol, Per 80 Mg [facility]NOTE 2]#2915-6608-72 Reviewed 11/07/2013 3:16 PM THER/PROPH/DIAG INJ SC/IM [...] VE WBC Est Ur Ql Strip -VE History Of Immunizations Name Date Admin Mfg Name Mfg Code Trade Name Lot# Route Inj Vis Given Vis Pub CVX Influenza 02/18/2017 [place]i SKB Fluzone High-Dose Not Entered Not Entered 04/20/2018 04/20/2018 135 Pneumococcal 01/16/2016 Not Entered NE Prevnar 13 Not Entered Not Entered 04/10/2017 04/20/2018 [...] Dec 19 2009 2:34PM Malignant neoplasm prostate dx-2008 Elevated prostate specific antigen (PSA) 11/22/2014 Prostate cancer 12/07/2015 Adenocarcinoma of prostate, stage 4 12/26/2015 Adenocarcinoma of prostate 04/29/2016 Urgency of urination 07/08/2016 Frequency of micturition 07/08/2016 Nocturia 07/08/2016 Urge urinary incontinence 08/13/2016 Incontinence 09/02/2016 Urge incontinence of urine 09/02/2016 Hypertension Jan 02 2011 8:42AM Hyperlipidemia Jan 02 2011 8:42AM Prostate Cancer Jan 02 2011 8:42AM Hypertension Jan 08 2011 8:50AM Hyperlipidemia, unspecified Jan 08 2011 8:50AM Esophageal Reflux Jan 08 2011 8:50AM Left Otitis Media, Acute Mar 25 2011 [...] Adenocarcinoma of prostate May 11 2017 3:14PM Payers Insurance Name Company Name Plan Name Plan Number Policy Number Policy Group Number Start Date Medicare Part A Medicare Part A [id number] N/A BCBS [facility] [id number] Friday, 2008 Medicare Part B Medicare Of [place] [id number] Thursday, 1996 Medicare Part A Medicare - Lab/Xray [id number] N/A History of Encounters Visit Date Visit Type Provider 04/10/2017 Office visit Tammy Arvizu MD 01/13/2017 Office visit Juany Donahue MD 09/02/2016 Procedures Juany Donahue MD 08/13/2016 Office visit Juany Donahue MD 07/08/2016 Office visit Juany Donahue MD 04/29/2016 Office visit Juany Donahue MD 12/26/2015 Office visit Juany Donahue MD 12/07/2015 Procedures Edmund Galeana DO 08/13/2015 Office visit Juany Donahue MD 08/07/2015 Voided V John Donahue MD 04/03/2015 Office visit Juany Donahue MD 11/22/2014 Office visit Juany Donahue MD 07/17/2014 Office visit Juany Donahue MD 03/13/2014 Office visit Juany Donahue MD 11/07/2013 Office visit Juany Donahue MD 09/19/2013 Hospital Ginette Navarrete MD 08/15/2013 Office visit Faizan Raphael DE ICER FINISHER 11/11/2012 Office visit Yecenia Alexander DE ICER FINISHER 10/27/2012 Office visit Celena Crane DE ICER FINISHER 04/22/2012 Office visit Sean Shell MD 04/14/2012 Hospital Lola Paz MD 04/13/2012 [facility] Lola Paz MD 04/12/2012 [facility] Ginette Navarrete MD 04/12/2012 [facility] Lola Paz MD 02/13/2012 Office visit Sean Shell MD 04/16/2011 Office visit Apryl Branham MD 03/25/2011 Office visit Yecenia Alexander DE ICER FINISHER 01/08/2011 Office visit Sean Shell MD 12/19/2009 Office visit Salima JIMENEZP 12/13/2009 Office visit Sean Shell MD 11/12/2009 Office visit Sean Shell MD 07/06/2009 Office visit Sean Shell MD 06/25/2009 Office visit Sean Shell MD 06/07/2009 Office visit Sean Shell MD
--- OUTSIDE RECORDS SUMMARY | 2017-12-25 07:51 | XMS REPORT ---
Author Author Juany Donahue Organization [facility] Address [address] [place], [place] [id number] Care Team Providers Care Auto Radiator Specialist Name Role Phone Juany Donahue PCP Unavailable Allergies and Adverse Reactions Name Reaction Notes NO KNOWN DRUG ALLERGIES Plan of Treatment Planned Activity Comments Planned Date Planned Time Plan/Goal PSA TOTAL 04/03/2015 12:00 AM BMP 04/22/2012 12:00 AM PSA total 11/22/2014 12:00 AM Medications Active Name Start Date Estimated Completion Date SIG Comments lisinopril-hydrochlorothiazide 20-25 mg oral tablet 05/16/2013 TAKE 1 TABLET BY MOUTH DAILY amlodipine 2.5 mg oral tablet take 1 tablet (2.5 mg) by oral route once daily aspirin 81 mg oral tablet,delayed release (DR/EC) take 1 tablet (81 mg) by oral route once daily bicalutamide 50 mg oral tablet take 1 tablet (50 mg) by oral route once daily Calcium 500 + D 500 mg(1,250mg) -400 unit oral tablet take 1 tablet by oral route daily Fish Oil [place] 3-6-9 300-1,000 mg oral capsule,delayed release(DR/EC) take 1 capsule by oral route daily [place] 5-325 mg oral tablet take 1 tablet by oral route every 4 hours as needed for pain potassium chloride 20 mEq oral tablet extended release take 1 tablet ( 20 meq) by oral route once daily with food Name Start Date Expiration Date SIG Comments [...] TAKE 1 TABLET BY MOUTH AT BEDTIME omeprazole 20 mg oral capsule,delayed release(DR/EC) 01/03/2013 04/03/2013 TAKE 1 CAPSULE BY MOUTH ONCE DAILY simvastatin 20 mg oral tablet 05/02/2013 TAKE 1 TABLET BY MOUTH AT BEDTIME Casodex 50 mg oral tablet 08/13/2015 01/10/2016 take 1 tablet (50 mg) by oral route once daily for 30 days Discontinued Name Start Date Discontinued Date [...] (100 mg) by oral route once daily Problem List Description Status Onset Hyperlipidemia Active Hypertension Active Malignant neoplasm prostate Active dx-2008 Elevated prostate specific antigen (PSA) Active 11/22/2014 Prostate cancer Active 12/07/2015 Adenocarcinoma of prostate, stage 4 Active 12/26/2015 Adenocarcinoma of prostate Active 04/29/2016 Urgency of urination Active 07/08/2016 Frequency of micturition Active 07/08/2016 Nocturia Active 07/08/2016 Urge urinary incontinence Active 08/13/2016 Vital Signs Date Time BP-Sys(mm[Hg] BP-Jeanne(mm[Hg]) HR(bpm) RR(rpm) Temp WT HT HC BMI BSA BMI Percentile O2 Sat(%) 08/13/2016 9:48:00 AM 134 mmHg 98 mmHg 98 bpm 20 rpm 97 F 180 lbs 68 in 27.37 kg/m2 1.98 m2 96 % 07/08/2016 8:07:00 AM 122 mmHg 72 mmHg 85 bpm 18 rpm 97.1 F 175 lbs 68 in 26.6084 kg/m 1.9515 m 98 % 12/07/2015 11:22:00 AM 100 mmHg 73 mmHg 100 bpm 16 rpm 97.4 F 169 lbs 68 in 25.70 kg/m2 1.92 m2 11/22/2014 10:03:00 AM 175 lbs 68 in 26.6084 kg/m 1.9515 m 08/15/2013 9:02:00 AM 140 mmHg 80 mmHg 88 bpm 16 rpm 96.2 F 184 lbs 68 in 27.98 kg/m2 2.00 m2 94 % 11/11/2012 3:16:00 PM 128 mmHg 82 mmHg 81 bpm 18 rpm 96.4 F 181 lbs 68 in 27.5207 kg/m 1.9847 m 97 % 10/27/2012 8:53:00 AM 130 mmHg 93 mmHg 95 bpm 18 rpm 97.7 F 183 lbs 68 in 27.82 kg/m2 2.00 m2 97 % 04/22/2012 10:02:00 AM 130 mmHg 80 mmHg 97 bpm 18 rpm 97.8 F 181.375 lbs 68 in 27.5777 kg/m 1.9867 m 97 % 02/13/2012 8:36:00 AM 136 mmHg 84 mmHg 72 bpm 18 rpm 97.6 F 185 lbs 68 in 28.13 kg/m2 2.01 m2 04/16/2011 9:03:00 AM 124 mmHg 82 mmHg 77 bpm 16 rpm 96.7 F 182.25 lbs 68 in 27.7107 kg/m 1.9915 m 97 % 03/25/2011 10:03:00 AM 138 mmHg 91 mmHg 20 bpm 78 rpm 97.4 F 187.375 lbs 67 in 29.35 kg/m2 2.00 m2 98 % 01/08/2011 8:49:00 AM 118 mmHg 70 mmHg 64 bpm 20 rpm 98.1 F 183 lbs 68 in 27.8248 kg/m 1.9956 m 12/19/2009 2:28:00 PM 130 mmHg 90 mmHg 80 bpm 20 rpm 96.4 F 188 lbs 12/13/2009 9:12:00 AM 130 mmHg 80 mmHg 68 bpm 20 rpm 97.3 F 188 lbs 11/12/2009 10:47:00 AM 108 mmHg 78 mmHg 88 bpm 18 rpm 96.3 F 183 lbs 68 in 27.82 kg/m2 2.00 m2 96 % 07/06/2009 8:34:00 AM 122 mmHg [...] 08/15/2013 12:00 AM Decadron, Per 1 Mg [facility]# [address]-64 Reviewed 08/15/2013 12:00 AM Depo-Medrol, Per 80 Mg [facility]#1453-8285-90 Reviewed 11/07/2013 3:16 PM THER/PROPH/DIAG INJ SC/IM Reviewed 11/07/2013 3:16 PM Lupron Depot 3.75 Mg Reviewed 03/13/2014 12:00 AM ASSAY OF PSA TOTAL Reviewed 07/17/2014 12:00 AM ASSAY OF PSA TOTAL Reviewed Results Summary Data and Description Results 06/07/2009 10:54 AM MCH 34.60 pg%EOS 4.90 %#MONO 0.49 NRBC% 0.0 HCT 38.80 %RDW CV 13.60 %%BASO 0.3 %#BASO 0.02 %NEUT 70.40 %WBC 7.5 HGB 14.20 g/dL#NEUT 5.28 RDW SD 47 MCV 95.0 fLRBC 4.10 #EOS 0.37 %LYMP 17.90 %MCHC 36.60 g/dLMPV 10.20 fLPLT 150 MANUAL DIFF NOT IND %MONO 6.50 %NRBC# 0.00 #LYMP 1.34 HDL 41.0 mg/ dLTRIGLYCERIDES 242.0 mg/dLLDL (CALC) 102.0 mg/dLHDL 41.0 mg/dLTRIGLYCERIDES 242.0 mg/dLTOT CHOL/HDL 4.7 CHOLESTEROL 191 mg/dLGLUCOSE 96 SODIUM 144.0 mmol/ LPOTASSIUM 3.50 mmol/LCHLORIDE 101.0 mmol/LCO2 29.0 mmol/LBUN 20.0 mg/ dLCREATININE 0.80 mg/dLSGOT/AST 25.0 IU/LSGPT/ALT 21.0 IU/LALK PHOS 87.0 IU/ LTOTAL PROTEIN 6.60 g/dLALBUMIN 4.20 g/dLTOTAL BILI 0.70 mg/dLCALCIUM 9.80 mg/ dLAGE 77 GFR NonAA 94 GFR AA 114 eGFR >60 mL/min/1.73 meGFR AA* >60 01/06/2011 8:06 AM GLUCOSE 99.0 mg/dLSODIUM [...] 04/16/2011 10:00 AM URIC ACID 6.8 mg/dL 04/21/2012 8:35 AM WBC 9.5 RBC 4.24 HGB 14.30 g/dLHCT 40.10 %MCV 95.0 fLMCH 33.70 pgMCHC 35.70 g/dLRDW SD 49 RDW CV 14.30 %MPV 9.50 fLPLT 186 NRBC# 0.00 NRBC% 0.0 %NEUT 70.40 %%LYMP 12.90 %%MONO 11.70 %%EOS 4.70 %%BASO 0.30 %#NEUT 6.69 #LYMP 1.23 #MONO 1.11 #EOS 0.45 #BASO 0.03 MANUAL DIFF NOT IND GLUCOSE 85.0 mg/dLSODIUM 137.0 mmol/LPOTASSIUM 3.20 mmol/LCHLORIDE 97.0 mmol/LCO2 31.0 mmol/LBUN 18.0 mg/dLCREATININE 0.90 mg/dLCALCIUM 9.20 mg/dLAGE 80 GFR NonAA 81 GFR AA 98 eGFR 60 eGFR AA* 60 03/08/2014 8:30 AM PSA TOTAL 0.960 ng/mL 07/11/2014 8:48 AM PSA TOTAL 4.030 ng/mL [...] Ur Ql Strip -VE History Of Immunizations Not available. History of Past Illness Name Date of [...] dx-2009 Elevated prostate specific antigen (PSA) 11/22/2014 Prostate cancer 12/07/2015 Adenocarcinoma of prostate, stage 4 12/26/2015 Adenocarcinoma of prostate 04/29/2016 Urgency of urination 07/08/2016 Frequency of micturition 07/08/2016 Nocturia 07/08/2016 Urge urinary incontinence 08/13/2016 Hypertension Jan 02 2011 8:42AM Hyperlipidemia Jan [...] Adenocarcinoma of prostate Aug 13 2016 9:52AM Payers Insurance Name Company Name Plan Name Plan Number Policy Number Policy Group Number Start Date Medicare Part A Medicare Part A [id number] N/A [id number] Friday, 2008 Medicare Part B Medicare Of [place] [id number] Thursday, 1996 Medicare Part A Medicare - Lab/Xray [id number] N/A History of Encounters Visit Date Visit Type Provider 08/13/2016 Office visit V John Donahue MD 07/08/2016 Office visit V John Donahue MD 04/29/2016 Office visit V John Donahue MD 12/26/2015 Office visit V John Donahue MD 12/07/2015 Procedures Edmund Galeana DO 08/13/2015 Office visit V John Donahue MD 08/07/2015 Voided V John Donahue MD 04/03/2015 Office visit V John Donahue MD 11/22/2014 Office visit V John Donahue MD 07/17/2014 Office visit V John Donahue MD 03/13/2014 Office visit V Jonh Donahue MD 11/07/2013 Office visit V John Donahue MD 09/19/2013 Hospital Ginette Navarrete MD 08/15/2013 Office visit Faizan Raphael TERRITORY SERVICE REPRESENTATIVE 11/11/2012 Office visit Yecenia Alexander TERRITORY SERVICE REPRESENTATIVE 10/27/2012 Office visit Celena Crane TERRITORY SERVICE REPRESENTATIVE 04/22/2012 Office visit Sean Shell MD 04/14/2012 [facility] Lola Paz MD 04/13/2012 [facility] Lola Paz MD 04/12/2012 [facility] Ginette Navarrete MD 04/12/2012 [facility] Lola Paz MD 02/13/2012 Office visit Sean Shell MD 04/16/2011 Office visit Apryl Branham MD 03/25/2011 Office visit Yecenia Alexander APRN 01/08/2011 Office visit Sean Shell MD 12/19/2009 Office visit Salima RODRIGUEZ 12/13/2009 Office visit Sean Shell MD 11/12/2009 Office visit Sean Sehll MD 07/06/2009 Office visit Sean Shell MD 06/25/2009 Office visit Sean Shell MD 06/07/2009 Office visit Sean Shell MD
--- OUTSIDE RECORDS SUMMARY | 2017-12-25 07:51 | XMS REPORT ---
Author Author Juany Donahue [facility] Address [address] [place], [place] [id number] Care Team Providers Care Construction Flagger Name Role Phone Juany Donahue PCP Unavailable [...] tablet by oral route daily Fish Oil [place] 3-6-9 300-1,000 mg oral capsule,delayed release(DR/EC) take 1 capsule by oral route daily potassium chloride 20 mEq oral tablet extended release take 1 tablet ( 20 meq) by oral route once daily with food Zytiga 250 mg oral tablet take 4 tablets (1,000 mg) by oral route once daily ; swallow whole. Do not eat any food for at least 2 hrs before or 1 hr after dose prednisone 5 mg oral tablet take 1 tablet (5 mg) by oral route 2 times per day oxybutynin chloride 5 mg oral tablet 09/02/2016 Take as instructed by physician Name Start Date Expiration Date SIG Comments [...] oral route once daily for 30 days [place] 5-325 mg oral tablet take 1 tablet [...] 08/15/2013 12:00 AM Decadron, Per 1 Mg [facility]# [address]-19 Reviewed 08/15/2013 12:00 AM Depo-Medrol, Per 80 Mg [facility]#1148-6651-15 Reviewed 11/07/2013 3:16 PM THER/PROPH/DIAG INJ SC/IM Reviewed 11/07/2013 3:16 PM Lupron Depot 3.75 Mg Reviewed 03/13/2014 12:00 AM ASSAY OF PSA TOTAL Reviewed 07/17/2014 12:00 AM ASSAY OF PSA TOTAL Reviewed Results Summary Date and Description Results 06/07/2009 10:54 AM MCH [...] incontinence of urine Sep 02 2016 11:24AM Payers Insurance Name Company Name Plan Name Plan Number Policy Number Policy Group Number Start Date Medicare Part A Medicare Part A [id number] N[id number] Friday, 2008 Medicare Part B Medicare Of [place] [id number] Thursday, 1996 Medicare Part A Medicare - Lab/Xray [id number] N/A History of Encounters Visit Date Visit Type Provider 09/02/2016 Office visit V John Donahue MD 08/13/2016 Office visit V John Donahue MD 07/08/2016 Office visit V John Donahue MD 04/29/2016 Office visit V John Donahue MD 12/26/2015 Office visit Juany Donahue MD 12/07/2015 Procedures Edmund Galeana DO 08/13/2015 Office visit V John Donahue MD 08/07/2015 Voided V John Donahue MD 04/03/2015 Office visit V John Donahue MD 11/22/2014 Office visit Juany Donahue MD 07/17/2014 Office visit Juany Donahue MD 03/13/2014 Office visit Juany Donahue MD 11/07/2013 Office visit Juany Donahue MD 09/19/2013 Hospital Ginette Navarrete MD 08/15/2013 Office visit Faizan Raphael LOGISTIC SPECIALIST 11/11/2012 Office visit Yecenia Alexander LOGISTIC SPECIALIST 10/27/2012 Office visit Celena Crane LOGISTIC SPECIALIST 04/22/2012 Office visit Sean Shell MD 04/14/2012 Hospital Lola Paz MD 04/13/2012 [facility] Lola Paz MD 04/12/2012 Hospital Ginette Navarrete MD 04/12/2012 [facility] Lola Paz MD 02/13/2012 Office visit Sean Shell MD 04/16/2011 Office visit Apryl Branham MD 03/25/2011 Office visit Yecenia Alexander LOGISTIC SPECIALIST 01/08/2011 Office visit Sean Shell MD 12/19/2009 Office visit Salima JIMENEZP 12/13/2009 Office visit Sean Shell MD 11/12/2009 Office visit Sean Shell MD 07/06/2009 Office visit Sean Shell MD 06/25/2009 Office visit Sean Shell MD 06/07/2009 Office visit Sean Shell MD
--- OUTSIDE RECORDS SUMMARY | 2017-12-25 07:52 | XMS REPORT ---
Author Author Juany Donahue Organization [facility] Address [address] [place], [place] [address] Care Team Providers Care Chemistry Research Assistant Name Role Phone Juany Donahue PCP Unavailable Allergies and Adverse Reactions Name Reaction Notes NO KNOWN DRUG ALLERGIES Plan of Treatment Planned Activity Comments Planned Date Planned Time Plan/Goal PSA TOTAL 04/03/2015 12:00 AM PSA TOTAL 08/11/2016 12:00 AM BMP 04/22/2012 12:00 AM PSA [...] tablet by oral route daily Fish Oil [place] 3-6-9 300-1,000 mg oral capsule,delayed release(DR/EC) take 1 capsule by oral route daily [place] 5-325 mg oral tablet take 1 tablet [...] of micturition Active 07/08/2016 Nocturia Active 07/08/2016 Vital Signs Date Time BP-Sys(mm[Hg] BP-Jeanne(mm[Hg]) HR(bpm) RR(rpm) Temp WT HT HC BMI BSA BMI Percentile O2 Sat(%) 07/08/2016 8:07:00 AM 122 mmHg 72 mmHg [...] F 184 lbs 68 in 27.98 kg/m2 2.0011 m 94 % 11/11/2012 3:16:00 PM 128 mmHg 82 mmHg 81 bpm 18 rpm 96.4 F 181 lbs 68 in 27.5207 kg/m 1.98 m2 97 % 10/27/2012 8:53:00 AM 130 mmHg 93 mmHg 95 bpm 18 rpm 97.7 F 183 lbs 68 in 27.82 kg/m2 1.9956 m 97 % 04/22/2012 10:02:00 AM 130 mmHg 80 mmHg 97 bpm 18 rpm 97.8 F 181.375 lbs 68 in 27.5777 kg/m 1.99 m2 97 % 02/13/2012 8:36:00 AM 136 mmHg 84 mmHg 72 bpm 18 rpm 97.6 F 185 lbs 68 in 28.13 kg/m2 2.0065 m 04/16/2011 9:03:00 AM 124 mmHg 82 mmHg 77 bpm 16 rpm 96.7 F 182.25 lbs 68 in 27.7107 kg/m 1.99 m2 97 % 03/25/2011 10:03:00 AM 138 mmHg 91 mmHg 20 bpm 78 rpm 97.4 F 187.375 lbs 67 in 29.35 kg/m2 2.0044 m 98 % 01/08/2011 8:49:00 AM 118 mmHg 70 mmHg 64 bpm 20 rpm 98.1 F 183 lbs 68 in 27.8248 kg/m 2.00 m2 12/19/2009 2:28:00 PM 130 mmHg [...] 9:04 AM URINALYSIS AUTO W/O SCOPE Reviewed 08/15/2013 12:00 AM THER/PROPH/DIAG INJ SC/IM Reviewed 08/15/2013 12:00 AM Decadron, Per 1 Mg [facility]# [address]-12 Reviewed 08/15/2013 12:00 AM Depo-Medrol, Per 80 Mg [facility]#1666-0741-60 Reviewed 11/07/2013 3:16 PM THER/PROPH/DIAG INJ SC/IM [...] 07/08/2016 Frequency of micturition 07/08/2016 Nocturia 07/08/2016 Hypertension Jan 02 2011 8:42AM Hyperlipidemia Jan [...] 8:18AM Drug therapy Aug 11 2016 8:18AM Payers Insurance Name Company Name Plan Name Plan Number Policy Number Policy Group Number Start Date Medicare Part A Medicare Part A [id number] N/A [facility] [id number] Friday, 2008 Medicare Part B Medicare Of [place] [id number] Thursday, 1996 Medicare Part A Medicare - Lab/Xray [id number] N/A History of Encounters Visit Date Visit Type Provider 07/08/2016 Office visit Juany Donahue MD 04/29/2016 [...] Navarrete MD 08/15/2013 Office visit Faizan Raphael CHARGER TESTER 11/11/2012 Office visit Yecenia Alexander CHARGER TESTER 10/27/2012 Office visit Celena Crane CHARGER TESTER 04/22/2012 Office visit Sean Shell MD 04/14/2012 [facility] Lola Paz MD 04/13/2012 [facility] Lola Paz MD 04/12/2012 [facility] Ginette Navarrete MD 04/12/2012 [facility] Lola Paz MD 02/13/2012 Office visit Sean Shell MD 04/16/2011 Office visit Apryl Branham MD 03/25/2011 Office visit Yecenia Alexander CHARGER TESTER 01/08/2011 Office visit Sean Shell MD 12/19/2009 Office visit Salima JIMENEZP 12/13/2009 Office visit Sean Shell MD 11/12/2009 Office visit Sean Shell MD 07/06/2009 Office visit Sean Shell MD 06/25/2009 Office visit Sean Shell MD 06/07/2009 Office visit Sean Shell MD
--- OUTSIDE RECORDS SUMMARY | 2017-12-25 07:53 | XMS REPORT ---
Author Edmund Fuentes [facility] Address [address] [place], [place] [address] Care Team Providers Care Tobacco Warehouse Agent Name Role Phone Edmund Galeana PCP Unavailable Allergies and Adverse Reactions Name Reaction Notes NO KNOWN DRUG ALLERGIES Plan of Treatment Planned Activity Comments Planned Date Planned Time Plan/Goal ASSAY OF PSA TOTAL 04/03/2015 12:00 AM METABOLIC PANEL TOTAL CA 04/22/2012 12:00 AM ASSAY OF PSA TOTAL 11/22/2014 12:00 AM Medications Active Name Start [...] tablet by oral route daily Fish Oil [place] 3-6-9 300-1,000 mg oral capsule,delayed release(DR/EC) take 1 capsule by oral route daily [place] 5-325 mg oral tablet take 1 tablet [...] (PSA) Active 11/22/2014 Prostate cancer Active 12/07/2015 Vital Signs Date Time BP-Sys(mm[Hg] BP-Jeanne(mm[Hg]) HR(bpm) RR(rpm) Temp WT HT HC BMI BSA BMI Percentile O2 Sat(%) 12/07/2015 11:22:00 AM 100 mmHg 73 mmHg [...] 12:00 AM ASSAY OF BLOOD/URIC ACID Reviewed 08/15/2013 12:00 AM THER/PROPH/DIAG INJ SC/IM Reviewed 08/15/2013 12:00 AM Decadron, Per 1 Mg [facility]# [address]-65 Reviewed 08/15/2013 12:00 AM Depo-Medrol, Per 80 Mg [facility]#5684-0312-29 Reviewed 11/07/2013 3:16 PM THER/PROPH/DIAG INJ SC/IM Reviewed 11/07/2013 3:16 PM Lupron Depot 3.75 Mg Reviewed 03/13/2014 12:00 AM ASSAY OF PSA TOTAL Returned 07/17/2014 12:00 AM ASSAY OF PSA TOTAL Reviewed Results Summary Data and Description Results 06/07/2009 10:54 AM MCH 34.60 pg%EOS 4.90 %#MONO 0.49 HCT 38.80 %RDW CV 13.60 % %BASO 0.3 %#BASO 0.02 %NEUT 70.40 %WBC 7.5 HGB 14.20 g/dL#NEUT 5.28 MCV 95.0 fLRBC 4.10 #EOS 0.37 %LYMP 17.90 %MCHC 36.60 g/dLMPV 10.20 fLPLT 150 %MONO 6.50 %#LYMP 1.34 HDL 41.0 mg/dLTRIGLYCERIDES 242.0 mg/dLLDL (CALC) 102.0 mg/dLHDL 41.0 mg/dLTRIGLYCERIDES 242.0 mg/dLCHOLESTEROL 191 mg/dLGLUCOSE 96 SODIUM 144.0 mmol/LPOTASSIUM 3.50 mmol/LCHLORIDE 101.0 mmol/LCO2 29.0 mmol/LBUN 20.0 mg/ dLCREATININE 0.80 mg/dLSGOT/AST 25.0 IU/LSGPT/ALT 21.0 IU/LALK PHOS 87.0 IU/ LTOTAL PROTEIN 6.60 g/dLALBUMIN 4.20 g/dLTOTAL BILI 0.70 mg/dLCALCIUM 9.80 mg/ dLeGFR >60 mL/min/1.73 m 01/06/2011 8:06 AM GLUCOSE 99.0 mg/dLSODIUM 139.0 mmol/LPOTASSIUM 3.40 mmol/ LCHLORIDE 102.0 mmol/LCO2 28.0 mmol/LBUN 20.0 mg/dLCREATININE 0.90 mg/dLSGOT/ AST 14.0 IU/LSGPT/ALT 12.0 IU/LALK PHOS 90.0 IU/LTOTAL PROTEIN 6.60 g/dLALBUMIN 3.90 g/dLTOTAL BILI 0.70 mg/dLCALCIUM 9.10 mg/dLeGFR >60 mL/min/1.73 [id number] 176.0 mg/dLCHOLESTEROL 150.0 mg/dLHDL 35.0 mg/dLLDL (CALC) 80.0 mg/dLWBC 8.1 RBC 4.25 HGB 14.50 g/dLHCT 41.10 %MCV 97.0 fLMCH 34.10 pgMCHC 35.30 g/dLRDW CV 14.0 %MPV 9.80 fLPLT 136 %NEUT 72.80 %%LYMP 18.70 %%MONO 6.70 % %EOS 1.60 %%BASO 0.20 %#NEUT 5.88 #LYMP 1.51 #MONO 0.54 #EOS 0.13 #BASO 0.02 PSA TOTAL 0.680 ng/mL 04/16/2011 10:00 AM URIC ACID 6.8 mg/dL 04/21/2012 8:35 AM WBC 9.5 RBC 4.24 HGB 14.30 g/dLHCT 40.10 %MCV 95.0 fLMCH 33.70 pgMCHC 35.70 g/dLRDW CV 14.30 %MPV 9.50 fLPLT 186 %NEUT 70.40 %%LYMP 12.90 %%MONO 11.70 %%EOS 4.70 %%BASO 0.30 %#NEUT 6.69 #LYMP 1.23 #MONO 1.11 # EOS 0.45 #BASO 0.03 GLUCOSE 85.0 mg/dLSODIUM 137.0 mmol/LPOTASSIUM 3.20 mmol/ LCHLORIDE 97.0 mmol/LCO2 31.0 mmol/LBUN 18.0 mg/dLCREATININE 0.90 mg/dLCALCIUM 9.20 mg/dLeGFR 60 03/08/2014 8:30 AM PSA TOTAL 0.960 ng/mL 07/11/2014 8:48 AM PSA TOTAL 4.030 ng/mL 11/14/2014 4:08 PM PSA TOTAL 1.380 ng/mL 08/07/2015 9:10 AM PSA TOTAL 3.70 ng/mL History Of Immunizations Not available. History of [...] specific antigen (PSA) 11/22/2014 Prostate cancer 12/07/2015 Hypertension Jan 02 2011 8:42AM Hyperlipidemia Jan [...] 11:25AM Prostate cancer Dec 07 2015 11:33AM Prostate cancer Dec 10 2015 7:34AM Payers Insurance Name Company Name Plan Name Plan Number Policy Number Policy Group Number Start Date Medicare Part A Medicare Part A [id number] N/A BCBS [facility] [id number] Friday, 2008 Medicare Part B Medicare Of [place] [id number] Thursday, 1996 Medicare Part A Medicare - Lab/Xray [id number] N/A History of Encounters Visit Date Visit Type Provider 12/07/2015 Procedures Edmund Galeana DO 08/13/2015 Office visit Juany Donahue MD 08/07/2015 Voided Juany Donahue MD 04/03/2015 Office visit Juany Donahue MD 11/22/2014 Office visit Juany Donahue MD 07/17/2014 Office visit Juany Donahue MD 03/13/2014 Office visit Juany Donahue MD 11/07/2013 Office visit Juany Donahue MD 09/19/2013 [facility] Ginette Navarrete MD 08/15/2013 Office visit Faizan Raphael PCAT INSTRUCTOR 11/11/2012 Office visit Yecenia Alexander PCAT INSTRUCTOR 10/27/2012 Office visit Celena Crane PCAT INSTRUCTOR 04/22/2012 Office visit Sean Shell MD 04/14/2012 [facility] Lola Paz MD 04/13/2012 [facility] Lola Paz MD 04/12/2012 [facility] Ginette Navarrete MD 04/12/2012 [facility] Lola Paz MD 02/13/2012 Office visit Sean Shell MD 04/16/2011 Office visit Apryl Branham MD 03/25/2011 Office visit Yecenia Alexander PCAT INSTRUCTOR 01/08/2011 Office visit Sean Shell MD 12/19/2009 Office visit Salima RODRIGUEZ 12/13/2009 Office visit Sean Shell MD 11/12/2009 Office visit Sean Shell MD 07/06/2009 Office visit Sean Shell MD 06/25/2009 Office visit Sean Shell MD 06/07/2009 Office visit Sean Shell MD
--- OUTSIDE RECORDS SUMMARY | 2017-12-25 07:53 | XMS REPORT ---
Author Roland Alexander [facility] Address [address] [place], [place] [address] Care Team Providers Care Marbleizer Name Role Phone Roland Levi PCP AleishaTammy harris PreferredProvider Allergies and Adverse Reactions Name Reaction Notes NO KNOWN DRUG ALLERGIES Plan of Treatment Planned Activity Comments Planned Date Planned Time Plan/Goal PSA TOTAL 04/03/2015 12:00 AM BMP 04/22/2012 12:00 AM LIPID PANEL 09/22/2017 12:00 AM PSA total 11/22/2014 12:00 AM [...] oral route once daily for 30 days [place] 5-325 mg oral tablet take 1 tablet [...] by oral route once daily Fish Oil [place] 3-6-9 300-1,000 mg oral capsule,delayed release(DR/EC) 04/10 [...] HC BMI BSA BMI Percentile O2 Sat(%) 09/23/2017 10:01:00 AM 152 mmHg 88 mmHg [...] 12:00 AM ASSAY OF PSA TOTAL Reviewed 09/23/2017 12:00 AM Lupron 7.5mg Reviewed 08/15/2013 12:00 AM THER/PROPH/DIAG INJ SC/IM Reviewed 08/15/2013 12:00 AM Decadron, Per 1 Mg [facility]# [address]-21 Reviewed 08/15/2013 12:00 AM Depo-Medrol, Per 80 Mg [facility]#9800-1845-71 Reviewed 11/07/2013 3:16 PM THER/PROPH/DIAG INJ SC/IM [...] 05/15/2017 9:26 AM PSA TOTAL 0.420 ng/mL History Of Immunizations Name Date Admin Mfg [...] small bowel obstruction Sep 23 2017 10:02AM Payers Insurance Name Company Name Plan Name Plan Number Policy Number Policy Group Number Start Date Medicare Part B Medicare Emi Albarado [id number] Thursday, 1996 BCBS [employer] Emi Albarado [id number] Friday, 2008 Medicare Part A Medicare Part A [id number] N/A Medicare Part A Medicare - Lab/Xray [id number] N/A Medicare RHC Medicare RHC [id number] N/A History of Encounters Visit Date Visit Type Provider 09/23/2017 Office visit Roland Levi MD 09/23/2017 Office visit Amadeo Nielsen MD 09/22/[address] Emory Tony MD 09/16/2017 Hospital Roland Levi MD 05/19/2017 Office visit [...] visit Juany Donahue MD 11/07/2013 Office visit uJany Donahue MD 09/19/2013 Hospital Ginette Navarrete MD 08/15/2013 Office visit Faizan Raphael HARDWARE PRESS OPERATOR 11/11/2012 Office visit Yecenia Alexander HARDWARE PRESS OPERATOR 10/27/2012 Office visit Celena Crane HARDWARE PRESS OPERATOR 04/22/2012 Office visit Sean Shell MD 04/14/2012 [facility] Lola Paz MD 04/13/2012 [facility] Lola Paz MD 04/12/2012 [facility] Ginette Navarerte MD 04/12/2012 [facility] Lola Paz MD 02/13/2012 Office visit [...]
--- OUTSIDE RECORDS SUMMARY | 2017-12-25 07:54 | XMS REPORT ---
Author Emory Kidd [facility] Address [address] [place], [place] [address] Care Team Providers Care Weaving Machine Operator Name Role Phone Emory Tony PCP AleishaTammy harris PreferredProvider Allergies and Adverse [...] tablet 05/25/2017 11/21/2017 TAKE INSTRUCTED BY PHYSICIAN Name Start Date Expiration Date SIG Comments [...] oral route once daily for 30 days [place] 5-325 mg oral tablet take 1 tablet [...] by oral route once daily Fish Oil [place] 3-6-9 300-1,000 mg oral capsule,delayed release(DR/EC) 04/10 [...] HC BMI BSA BMI Percentile O2 Sat(%) 09/22/2017 8:23:00 AM 130 mmHg 78 mmHg [...] 12:00 AM ASSAY OF PSA TOTAL Reviewed 08/15/2013 12:00 AM THER/PROPH/DIAG INJ SC/IM Reviewed 08/15/2013 12:00 AM Decadron, Per 1 Mg [facility]# [address]-73 Reviewed 08/15/2013 12:00 AM Depo-Medrol, Per 80 Mg [facility]#4469-1123-84 Reviewed 11/07/2013 3:16 PM THER/PROPH/DIAG INJ SC/IM [...] doctor, encounter for Sep 22 2017 8:27AM Payers Insurance Name Company Name Plan Name Plan Number Policy Number Policy Group Number Start Date Medicare [facility] Medicare [facility] [id number] N/[facility] [id number] Friday, 2008 Medicare Part A Medicare Part A [id number] N/A Medicare Part A Medicare - Lab/Xray [id number] N/A Medicare Part B Medicare Of [place] [id number] Thursday, January 181996 History of Encounters Visit Date Visit Type Provider 09/22/[address] Emory Tony MD 09/16/2017 Hospital Roland Levi MD 05/19/2017 Office visit Juany Donahue MD 04/10/2017 Office visit Tammy Arvizu MD 01/13/2017 Office visit Juany Donahue MD 09/02/2016 Procedures Juany Dnoahue MD 08/13/2016 Office visit Juany Donahue MD [...] Navarrete MD 08/15/2013 Office visit Faizan Raphael PAPER MACHINE TENDER 11/11/2012 Office visit Yecenia Alexander PAPER MACHINE TENDER 10/27/2012 Office visit Celena Crane PAPER MACHINE TENDER 04/22/2012 Office visit Sean Shell MD 04/14/2012 [facility] Lola Paz MD 04/13/2012 [facility] Lola Paz MD 04/12/2012 [facility] Ginette Navarrete MD 04/12/2012 [facility] Lola Paz MD 02/13/2012 Office visit Sean Shell MD 04/16/2011 Office visit Apryl Branham MD 03/25/2011 Office visit Yecenia Alexander PAPER MACHINE TENDER 01/08/2011 Office visit Sean Shell MD 12/19/2009 Office visit Salima RODRIGUEZ 12/13/2009 Office visit Sean Shell MD 11/12/2009 Office visit Sean Shell MD 07/06/2009 Office visit Sean Shell MD 06/25/2009 Office visit Sean Shell MD 06/07/2009 Office visit Sean Shell MD
--- OUTSIDE RECORDS SUMMARY | 2017-12-25 07:55 | XMS REPORT ---
Author Author Juany Donahue Organization [facility] Address [address] [place], [place] [id number] Care Team Providers Care Mining Manager Name Role Phone Juany Donahue PCP Unavailable [...] tablet by oral route daily Fish Oil [place] 3-6-9 300-1,000 mg oral capsule,delayed release(DR/EC) take 1 capsule by oral route daily [place] 5-325 mg oral tablet take 1 tablet [...] Active 12/26/2015 Adenocarcinoma of prostate Active 04/29/2016 Vital Signs Date Time BP-Sys(mm[Hg] BP-Jeanne(mm[Hg]) HR(bpm) [...] 08/15/2013 12:00 AM Decadron, Per 1 Mg [facility]# [address]-05 Reviewed 08/15/2013 12:00 AM Depo-Medrol, Per 80 Mg [facility]#0646-3788-17 Reviewed 11/07/2013 3:16 PM THER/PROPH/DIAG INJ SC/IM [...] stage 4 12/26/2015 Adenocarcinoma of prostate 04/29/2016 Hypertension Jan 02 2011 8:42AM Hyperlipidemia Jan [...] 2016 8:37AM Nocturia Jul 08 2016 8:37AM Payers Insurance Name Company Name Plan Name Plan Number Policy Number Policy Group Number Start Date Medicare Part A Medicare Part A [id number] N/A [facility] [id number] Friday, 2008 Medicare Part B Medicare Of [place] [id number] Thursday, 1996 Medicare Part A Medicare - Lab/Xray [id number] N/A History of Encounters Visit Date Visit [...] Ginette Navarrete MD 08/15/2013 Office visit Faizan Rapahel CANDY WRAPPING MACHINE OPERATOR 11/11/2012 Office visit Yecenia Alexander CANDY WRAPPING MACHINE OPERATOR 10/27/2012 Office visit Celena Crane CANDY WRAPPING MACHINE OPERATOR 04/22/2012 Office visit Sean Shell MD 04/14/2012 [facility] Lola Paz MD 04/13/2012 [facility] [...]
--- OUTSIDE RECORDS SUMMARY | 2017-12-25 07:56 | XMS REPORT ---
Author Author Juany Donahue Organization [facility] Address [address] [place], [place] [id number] Care Team Providers Care Career And Guidance Counselor Name Role Phone Juany Donahue PCP Unavailable Allergies and Adverse Reactions Name Reaction Notes NO KNOWN DRUG ALLERGIES Plan of Treatment Planned Activity Comments Planned Date Planned Time Plan/Goal ASSAY OF PSA TOTAL 04/03/2015 12:00 AM METABOLIC PANEL TOTAL CA 04/22/2012 12:00 AM ASSAY OF PSA TOTAL 11/22/2014 12:00 AM Medications Active Name Start Date Estimated Completion Date SIG Comments allopurinol 100 mg oral tablet take 1 tablet (100 mg) by oral route once daily Claritin 10 mg oral tablet 11/11/2012 take 1 tablet (10 mg) by oral route once daily Flomax 0.4 mg oral capsule,extended release 24hr 11/11/2012 take 1 capsule (0.4 mg) by oral route once daily 1/2 hour following the same meal each day simvastatin 20 mg oral tablet 05/02/2013 TAKE 1 TABLET BY MOUTH AT BEDTIME lisinopril-hydrochlorothiazide 20-25 mg oral tablet 05/16/2013 TAKE 1 TABLET BY MOUTH DAILY Name Start Date Expiration Date SIG Comments [...] 11/08/2012 take as directed for 6 days simvastatin 20 mg oral tablet 04/21/2012 07/20/2012 TAKE 1 TABLET BY MOUTH AT BEDTIME omeprazole 20 mg oral capsule,delayed release(DR/EC) 01/03/2013 04/03/2013 TAKE 1 CAPSULE BY MOUTH ONCE DAILY Discontinued Name Start Date Discontinued Date SIG [...] 04/16/2011 take 1 tab every 8hrs prn Problem List Description Status Onset Hyperlipidemia Active Hypertension Active Cancer of prostate Active 07/17/2014 Malignant neoplasm prostate Active 11/22/2014 Elevated prostate specific antigen (PSA) Active 11/22/2014 Adenocarcinoma of prostate Active 04/03/2015 Vital Signs Date Time BP-Sys(mm[Hg] BP-Jeanne(mm[Hg]) HR(bpm) RR(rpm) Temp WT HT HC BMI BSA BMI Percentile O2 Sat(%) 11/22/2014 10:03:00 AM 175 lbs 68 in [...] 12:00 AM Decadron, Per 1 Mg [facility]# [address]-37 Reviewed 08/15/2013 12:00 AM Depo-Medrol, Per 80 Mg [facility]#8451-0375-18 Reviewed 11/07/2013 3:16 PM THER/PROPH/DIAG INJ SC/IM [...] BILI 0.70 mg/dLCALCIUM 9.10 mg/dLeGFR >60 mL/min/1.73 [id number] 176.0 mg/dLCHOLESTEROL 150.0 mg/dLHDL 35.0 mg/dLLDL (CALC) [...] 11/14/2014 4:08 PM PSA TOTAL 1.380 ng/mL History Of Immunizations Not available. History of Past Illness Name Date of Onset Comments Prostate Cancer Hypertension Hyperlipidemia Hypertension Jun 07 2009 10:23AM Hyperlipidemia, unspecified Jun 07 2009 10:23AM Osteoarthritis Jun 25 2009 10:28AM Upper Respiratory Infection Jul 06 2009 8:37AM Hypertension Jul 06 2009 8:37AM Esophageal Reflux Nov 12 2009 11:01AM Hypertension Dec 13 2009 9:13AM Esophageal Reflux Dec 13 2009 9:13AM Herpes Zoster Dec 19 2009 2:34PM Cancer of prostate 07/17/2014 Malignant neoplasm prostate 11/22/2014 Elevated prostate specific antigen (PSA) 11/22/2014 Adenocarcinoma of prostate 04/03/2015 Hypertension Jan 02 2011 8:42AM Hyperlipidemia Jan [...] Cancer of prostate Apr 03 2015 10:07AM Payers Insurance Name Company Name Plan Name Plan Number Policy Number Policy Group Number Start Date Medicare Part A Medicare Part A [id number] N/A Bcbs [facility] [id number] Friday, 2008 Medicare Part B Medicare [place] [id number] Thursday, 1996 History of Encounters Visit Date Visit Type Provider 04/03/2015 Office visit Juany Donahue MD 11/22/2014 Office visit Juany Donahue MD 07/17/2014 Office visit Juany Donahue MD 03/13/2014 Office visit Juany Donahue MD 11/07/2013 Office visit Juany Donahue MD 09/19/2013 [facility] Ginette Navarrete MD 08/15/2013 Office visit Faizan Raphael STRUCTURAL DRAFTSMAN 11/11/2012 Office visit Yecenia Alexander STRUCTURAL DRAFTSMAN 10/27/2012 Office visit Celena Crane STRUCTURAL DRAFTSMAN 04/22/2012 Office visit Sean Shell MD 04/14/2012 [facility] Lola Paz MD 04/13/2012 [facility] Lola Paz MD 04/12/2012 [facility] Ginette Navarrete MD 04/12/2012 [facility] Lola Paz MD 02/13/2012 Office visit Sean Shell MD 04/16/2011 Office visit Apryl Branham MD 03/25/2011 Office visit Yecenia Alexander STRUCTURAL DRAFTSMAN 01/08/2011 Office visit Sean Shell MD 12/19/2009 Office visit Salima RODRIGUEZ 12/13/2009 Office visit Sean Shell MD 11/12/2009 Office visit Sean Shell MD 07/06/2009 Office visit Sean Shell MD 06/25/2009 Office visit Sean Shlel MD 06/07/2009 Office visit Sean Shell MD
--- OUTSIDE RECORDS SUMMARY | 2017-12-25 07:56 | XMS REPORT ---
Author Author Juany Donahue [facility] Address [address] [place], [place] [address] Care Team Providers Care Bar Pointer Name Role Phone Juany Donahue PCP Unavailable Tammy Arvizu PreferredProvider Allergies and Adverse Reactions [...] oral route once daily for 30 days [place] 5-325 mg oral tablet take 1 tablet [...] by oral route once daily Fish Oil [place] 3-6-9 300-1,000 mg oral capsule,delayed release(DR/EC) 04/10 [...] 08/15/2013 12:00 AM Decadron, Per 1 Mg [facility]# [address]-30 Reviewed 08/15/2013 12:00 AM Depo-Medrol, Per 80 Mg [facility]#0523-3024-76 Reviewed 11/07/2013 3:16 PM THER/PROPH/DIAG INJ SC/IM [...] Vis Given Vis Pub CVX Influenza 02/18/2017 [facility] Fluzone High-Dose Not Entered Not Entered [...] Adenocarcinoma of prostate May 19 2017 8:32AM Payers Insurance Name Company Name Plan Name Plan Number Policy Number Policy Group Number Start Date Medicare Part A Medicare Part A [id number] N/A [facility] [id number] Friday, 2008 Medicare Part B Medicare [place] [id number] Thursday, 1996 Medicare Part A Medicare - Lab/Xray [id number] N/A History of Encounters Visit Date Visit Type Provider 05/19/2017 Office visit Juany Donahue MD 04/10/2017 [...] Navarrete MD 08/15/2013 Office visit Faizan Raphael AUXILIARY EQUIPMENT TENDER 11/11/2012 Office visit Yecenia Alexander AUXILIARY EQUIPMENT TENDER 10/27/2012 Office visit Celena Crane AUXILIARY EQUIPMENT TENDER 04/22/2012 Office visit Sean Shell MD 04/14/2012 Hospital Lola Paz MD 04/13/2012 Hospital Lola Paz MD 04/12/2012 [facility] Ginette Navarrete MD 04/12/2012 [facility] Lola Paz MD 02/13/2012 Office visit Sean Shell MD 04/16/2011 Office visit Apryl Branham MD 03/25/2011 Office visit Yecenia Alexander AUXILIARY EQUIPMENT TENDER 01/08/2011 Office visit Sean Shell MD 12/19/2009 Office visit Salima JIMENEZP 12/13/2009 Office visit Sean Shell MD 11/12/2009 Office visit Sean Shell MD 07/06/2009 Office visit Sean Shell MD 06/25/2009 Office visit Sean Shell MD 06/07/2009 Office visit Sean Shell MD
--- OUTSIDE RECORDS SUMMARY | 2017-12-25 07:57 | XMS REPORT ---
Author Author Juany Donahue Organization [facility] Address [address] [place], [place] [address] Care Team Providers Care Black Puller Name Role Phone Juany Donahue PCP Unavailable Allergies and Adverse Reactions Name Reaction Notes NO KNOWN DRUG ALLERGIES Plan of Treatment Planned Activity Comments Planned Date Planned Time Plan/Goal ASSAY OF PSA TOTAL 04/03/2015 12:00 AM ASSAY OF PSA TOTAL 07/30/2015 12:00 AM METABOLIC PANEL TOTAL CA 04/22/2012 [...] 08/15/2013 12:00 AM Decadron, Per 1 Mg [facility]# [address]-74 Reviewed 08/15/2013 12:00 AM Depo-Medrol, Per 80 Mg [facility]#5179-9144-85 Reviewed 11/07/2013 3:16 PM THER/PROPH/DIAG INJ SC/IM [...] BILI 0.70 mg/dLCALCIUM 9.10 mg/dLeGFR >60 mL/min/1.73 [id number] 176.0 mg/dLCHOLESTEROL 150.0 mg/dLHDL 35.0 mg/dLLDL (CALC) [...] specific antigen (PSA) Jul 30 2015 9:48AM Payers Insurance Name Company Name Plan Name Plan Number Policy Number Policy Group Number Start Date Medicare Part A Medicare Part A [id number] N/A BCBS [facility] [id number] Friday, 2008 Medicare Part B Medicare Of [place] [id number] Thursday, 1996 History of Encounters Visit Date Visit Type Provider 04/03/2015 Office visit Juany Donahue MD 11/22/2014 Office visit Juany Donahue MD 07/17/2014 Office visit Juany Donahue MD 03/13/2014 Office visit Juany Donahue MD 11/07/2013 Office visit Juany Donahue MD 09/19/2013 [facility] Ginette Navarrete MD 08/15/2013 Office visit Faizan Raphael RECEIVER STOCKER 11/11/2012 Office visit Yecenia Alexander RECEIVER STOCKER 10/27/2012 Office visit Celena Crane RECEIVER STOCKER 04/22/2012 Office visit Sean Shell MD 04/14/2012 [facility] Lola Paz MD 04/13/2012 [facility] Lola Paz MD 04/12/2012 [facility] Ginette Navarrete MD 04/12/2012 [facility] Lola Paz MD 02/13/2012 Office visit Sean Shell MD 04/16/2011 Office visit Apryl Branham MD 03/25/2011 Office visit Yecenia Alexander RECEIVER STOCKER 01/08/2011 Office visit Sean Shell MD 12/19/2009 Office visit Salima JIMENEZP 12/13/2009 Office visit Sean Shell MD 11/12/2009 Office visit Sean Shell MD 07/06/2009 Office visit Sean Shell MD 06/25/2009 Office visit Sean Shell MD 06/07/2009 Office visit Sean Shell MD
--- OUTSIDE RECORDS SUMMARY | 2017-12-25 07:58 | XMS REPORT ---
Author Author Juany Donahue [facility] Address [address] [place], [place] [address] Care Team Providers Care Citrus Fruit Packer Name Role Phone Juany Donahue PCP Unavailable [...] tablet by oral route daily Fish Oil [place] 3-6-9 300-1,000 mg oral capsule,delayed release(DR/EC) take [...] day oxybutynin chloride 5 mg oral tablet 12/30/2016 TAKE INSTRUCTED BY PHYSICIAN Name Start Date [...] oral route once daily for 30 days [place] 5-325 mg oral tablet take 1 tablet [...] 12:00 AM Decadron, Per 1 Mg [facility]# [address]-15 Reviewed 08/15/2013 12:00 AM Depo-Medrol, Per 80 Mg [facility]#4754-1334-32 Reviewed 11/07/2013 3:16 PM THER/PROPH/DIAG INJ SC/IM [...] Adenocarcinoma of prostate Jan 13 2017 8:01AM Payers Insurance Name Company Name Plan Name Plan Number Policy Number Policy Group Number Start Date Medicare Part A Medicare Part A [id number] N/A BCBS [facility] [id number] Friday, 2008 Medicare Part B Medicare Of [place] [id number] Thursday, 1996 Medicare Part A Medicare - Lab/Xray [id number] N/A History of Encounters Visit Date Visit Type Provider 01/13/2017 Office visit Juany Donahue MD 09/02/2016 Procedures Juany Donahue MD 08/13/2016 Office visit V John Donahue MD 07/08/2016 Office visit Juany Donahue MD 04/29/2016 Office visit Juany Donahue MD 12/26/2015 Office visit Juany Donahue MD 12/07/2015 Procedures Edmund Galeana DO 08/13/2015 Office visit V John Donahue MD 08/07/2015 Voided uJany Donahue MD 04/03/2015 Office visit V John Donahue MD 11/22/2014 Office visit Juany Donahue MD 07/17/2014 Office visit Juany Donahue MD 03/13/2014 Office visit Juany Donahue MD 11/07/2013 Office visit Juany Donahue MD 09/19/2013 Hospital Ginette Navarrete MD 08/15/2013 Office visit Faizan Raphael FLANGER 11/11/2012 Office visit Yecenia Alexander FLANGER 10/27/2012 Office visit Celena Crane FLANGER 04/22/2012 Office visit Sean Shell MD 04/14/2012 [facility] Lola Paz MD 04/13/2012 [facility] Lola Paz MD 04/12/2012 [facility] Ginette Navarrete MD 04/12/2012 [facility] Lola Paz MD 02/13/2012 Office visit Sean Shell MD 04/16/2011 Office visit Apryl Branham MD 03/25/2011 Office visit Yecenia Alexander FLANGER 01/08/2011 Office visit Sean Shell MD 12/19/2009 Office visit Salima RODRIGUEZ 12/13/2009 Office visit Sean Shell MD 11/12/2009 Office visit Sean Shell MD 07/06/2009 Office visit Sean Shell MD 06/25/2009 Office visit Sean Shell MD 06/07/2009 Office visit Sean Shell MD
--- OUTSIDE RECORDS SUMMARY | 2017-12-25 07:58 | XMS REPORT ---
Author Author Juany Donahue Organization [facility] Address [address] [place], [place] [address] Care Team Providers Care Quality Associate Name Role Phone Juany Donahue PCP Unavailable [...] Active 11/22/2014 Adenocarcinoma of prostate Active 04/03/2015 Abnormal PSA Active 08/13/2015 Vital Signs Date Time BP-Sys(mm[Hg] BP-Jeanne(mm[Hg]) HR(bpm) [...] 08/15/2013 12:00 AM Decadron, Per 1 Mg [facility]# [address]-68 Reviewed 08/15/2013 12:00 AM Depo-Medrol, Per 80 Mg [facility]#9115-5010-20 Reviewed 11/07/2013 3:16 PM THER/PROPH/DIAG INJ SC/IM [...] BILI 0.70 mg/dLCALCIUM 9.10 mg/dLeGFR >60 mL/min/1.73 [id number] 176.0 mg/dLCHOLESTEROL 150.0 mg/dLHDL 35.0 mg/dLLDL (CALC) [...] antigen (PSA) 11/22/2014 Adenocarcinoma of prostate 04/03/2015 Abnormal PSA 08/13/2015 Hypertension Jan 02 2011 8:42AM Hyperlipidemia Jan [...] 2:27PM Abnormal PSA Aug 13 2015 2:27PM Payers Insurance Name Company Name Plan Name Plan Number Policy Number Policy Group Number Start Date Medicare Part A Medicare Part A [id number] N/A [id number] Friday, 2008 Medicare Part B Medicare Of [place] [id number] Thursday, 1996 Medicare Part A Medicare - Lab/Xray [id number] N/A History of Encounters Visit Date Visit Type Provider 08/13/2015 Office visit Juany Donahue MD 08/07/2015 Voided Juany Donahue MD 04/03/2015 Office visit Juany Donahue MD 11/22/2014 Office visit Juany Donahue MD 07/17/2014 Office visit Juany Donahue MD 03/13/2014 Office visit Juany Donahue MD 11/07/2013 Office visit Juany Donahue MD 09/19/2013 [facility] Ginette Navarrete MD 08/15/2013 Office visit Faizan Raphael DISTRICT RESOURCE OFFICER 11/11/2012 Office visit Yecenia Alexander DISTRICT RESOURCE OFFICER 10/27/2012 Office visit Celena Crane DISTRICT RESOURCE OFFICER 04/22/2012 Office visit Sean Shell MD 04/14/2012 [facility] Lola Paz MD 04/13/2012 [facility] Lola Paz MD 04/12/2012 [facility] Ginette Navarrete MD 04/12/2012 [facility] Lola Paz MD 02/13/2012 Office visit Sean Shell MD 04/16/2011 Office visit Apryl Branham MD 03/25/2011 Office visit Yecenia Alexander APRN 01/08/2011 Office visit Sean Shell MD 12/19/2009 Office visit Salima RODRIGUEZ 12/13/2009 Office visit Sean Shell MD 11/12/2009 Office visit Sean Shell MD 07/06/2009 Office visit Sean Shell MD 06/25/2009 Office visit Sean Shell MD 06/07/2009 Office visit Saen Shell MD
--- OUTSIDE RECORDS SUMMARY | 2017-12-25 07:59 | XMS REPORT ---
Author Edmund Fuentes [facility] Address [address] [place], [place] [address] Care Team Providers Care Change Lead Name Role Phone Edmund Galeana PCP Unavailable [...] tablet by oral route daily Fish Oil [place] 3-6-9 300-1,000 mg oral capsule,delayed release(DR/EC) take 1 capsule by oral route daily [place] 5-325 mg oral tablet take 1 tablet [...] 12:00 AM Decadron, Per 1 Mg [facility] 3[facility]# [id number] Reviewed 08/15/2013 12:00 AM Depo-Medrol, Per 80 Mg [facility][NOTE 3]#[id number] Reviewed 11/07/2013 3:16 PM THER/PROPH/DIAG INJ SC/IM [...] BILI 0.70 mg/dLCALCIUM 9.10 mg/dLeGFR >60 mL/min/1.73 [id number] 176.0 mg/dLCHOLESTEROL 150.0 mg/dLHDL 35.0 mg/dLLDL (CALC) [...] 11:25AM Prostate cancer Dec 07 2015 11:33AM Payers Insurance Name Company Name Plan Name Plan Number Policy Number Policy Group Number Start Date Medicare Part A Medicare Part A [id number] N/A BCBS [facility] [id number] Friday, 2008 Medicare Part B Medicare Of [place] [id number] Thursday, 1996 Medicare Part A Medicare - Lab/Xray [id number] N/A History of Encounters Visit Date Visit [...] Navarrete MD 08/15/2013 Office visit Faizan Raphael OIL DEVELOPER 11/11/2012 Office visit Yecenia Alexander OIL DEVELOPER 10/27/2012 Office visit Celena Crane OIL DEVELOPER 04/22/2012 Office visit Sean Shell MD 04/14/2012 [facility] Lola Paz MD 04/13/2012 [facility] Lola Paz MD 04/12/2012 [facility] Ginette Navarrete MD 04/12/2012 [facility] Lola Paz MD 02/13/2012 Office visit Sean Shell MD 04/16/2011 Office visit Apryl Branham MD 03/25/2011 Office visit Yecenia Alexander OIL DEVELOPER 01/08/2011 Office visit Sean Shell MD 12/19/2009 Office visit Salima JIMENEZP 12/13/2009 Office visit Sean Shell MD 11/12/2009 Office visit Sean Shell MD 07/06/2009 Office visit Sean Shell MD 06/25/2009 Office visit Sean Shell MD 06/07/2009 Office visit Sean Shell MD
[2017-12-25] MEDS ORDERED: HYDROCORTISONE 100 MG/2 ML (Solu-CORTEF) VIAL IV ONE (08:00)
--- OUTSIDE RECORDS SUMMARY | 2017-12-25 08:00 | XMS REPORT ---
Author Author Juany Donahue Organization [facility] Address [address] [place], [place] [address] Care Team Providers Care Project Developer Name Role Phone Juany Donahue PCP Unavailable [...] tablet by oral route daily Fish Oil [place] 3-6-9 300-1,000 mg oral capsule,delayed release(DR/EC) take 1 capsule by oral route daily [place] 5-325 mg oral tablet take 1 tablet [...] Per 1 Mg [facility]# [address]-53 Reviewed 08/15/2013 12:00 AM Depo-Medrol, Per 80 Mg [facility]#7479-5694-56 Reviewed 11/07/2013 3:16 PM THER/PROPH/DIAG INJ SC/IM [...] Adenocarcinoma of prostate Apr 29 2016 11:15AM Payers Insurance Name Company Name Plan Name Plan Number Policy Number Policy Group Number Start Date Medicare Part A Medicare Part A [id number] N/A BCBS Bcbs [facility] [id number] Friday, 2008 Medicare Part B Medicare Of [place] [id number] Thursday, 1996 Medicare Part A Medicare - Lab/Xray [id number] N/A History of Encounters Visit Date Visit Type Provider 04/29/2016 Office visit Juany Donahue MD 12/26/2015 Office visit Juany Donahue MD 12/07/2015 Procedures Edmund Galeana DO 08/13/2015 Office visit Juany Donahue MD 08/07/2015 Voided V John Donahue MD 04/03/2015 Office visit Juany Donahue MD 11/22/2014 Office visit Juany Donahue MD 07/17/2014 Office visit Juany Donahue MD 03/13/2014 Office visit Juany Donahue MD 11/07/2013 Office visit Juany Donahue MD 09/19/2013 [facility] Ginette Navarrete MD 08/15/2013 Office visit Faizan Raphael FOUNDATION DRILL OPERATOR HELPER 11/11/2012 Office visit Yecenia Alexander FOUNDATION DRILL OPERATOR HELPER 10/27/2012 Office visit Celena Crane FOUNDATION DRILL OPERATOR HELPER 04/22/2012 Office visit Sean Shell MD 04/14/2012 [facility] Lola Paz MD 04/13/2012 [facility] Lola Paz MD 04/12/2012 [facility] Ginette Navarrete MD 04/12/2012 [facility] Lola Paz MD 02/13/2012 Office [...]
--- OUTSIDE RECORDS SUMMARY | 2017-12-25 08:01 | XMS REPORT ---
Author Author Juany Donahue Organization [facility] Address [address] [place], [place] [address] Care Team Providers Care Circuit Board Drafter Name Role Phone Juany Donahue PCP Unavailable [...] tablet by oral route daily Fish Oil [place] 3-6-9 300-1,000 mg oral capsule,delayed release(DR/EC) take 1 capsule by oral route daily [place] 5-325 mg oral tablet take 1 tablet [...] AM ASSAY OF BLOOD/URIC ACID Reviewed 07/08/2016 9:04 AM URINALYSIS AUTO W/O SCOPE Reviewed 08/15/2013 12:00 AM THER/PROPH/DIAG INJ SC/IM Reviewed 08/15/2013 12:00 AM Decadron, Per 1 Mg [facility]# [address]-81 Reviewed 08/15/2013 12:00 AM Depo-Medrol, Per 80 Mg [facility]#4666-5496-23 Reviewed 11/07/2013 3:16 PM THER/PROPH/DIAG INJ SC/IM [...] Adenocarcinoma of prostate Jul 08 2016 8:10AM Payers Insurance Name Company Name Plan Name Plan Number Policy Number Policy Group Number Start Date Medicare Part A Medicare Part A [id number] N/A [id number] Friday, 2008 Medicare Part B Medicare Of [place] [id number] Thursday, 1996 Medicare Part A Medicare - Lab/Xray [id number] N/A History of Encounters Visit Date Visit Type Provider 07/08/2016 Office visit Juany Donahue MD 04/29/2016 Office visit Juany Donahue MD 12/26/2015 Office visit Juany Donahue MD 12/07/2015 Procedures Edmund Galeana DO 08/13/2015 Office visit Juany Donahue MD 08/07/2015 Voided Juany Donahue MD 04/03/2015 Office visit Juany Donahue MD 11/22/2014 Office visit Juany Donahue MD 07/17/2014 Office visit Juany Donaheu MD 03/13/2014 Office visit Juany Donahue MD 11/07/2013 Office visit Juany Donahue MD 09/19/2013 Hospital Ginette Navarrete MD 08/15/2013 Office visit Faizan Raphael SULFUR CHLORIDE OPERATOR 11/11/2012 Office visit Yecenia Alexander SULFUR CHLORIDE OPERATOR 10/27/2012 Office visit Celena Crane SULFUR CHLORIDE OPERATOR 04/22/2012 Office visit Sean Shell MD 04/14/2012 [facility] Lola Paz MD 04/13/2012 [facility] Lola Paz MD 04/12/2012 [facility] Ginette Navarrete MD 04/12/2012 [facility] Lola Paz MD 02/13/2012 Office visit Sean Shell MD 04/16/2011 Office visit Apryl Branham MD 03/25/2011 Office visit Yecenia Alexander SULFUR CHLORIDE OPERATOR 01/08/2011 Office visit Sean Shell MD 12/19/2009 Office visit Salima JIMENEZP 12/13/2009 Office visit Sean Shlel MD 11/12/2009 Office visit Sean Shell MD 07/06/2009 Office visit Sean Shell MD 06/25/2009 Office visit Sean Shell MD 06/07/2009 Office visit Sean Shell MD
--- OUTSIDE RECORDS SUMMARY | 2017-12-25 08:01 | XMS REPORT ---
Author Author Juany Donahue Organization [facility] Address [address] [place], [place] [id number] Care Team Providers Care Application Security Architect Name Role Phone Juany Donahue PCP Unavailable [...] tablet by oral route daily Fish Oil [place] 3-6-9 300-1,000 mg oral capsule,delayed release(DR/EC) take 1 capsule by oral route daily [place] 5-325 mg oral tablet take 1 [...] Adenocarcinoma of prostate, stage 4 Active 12/26/2015 Vital Signs Date Time BP-Sys(mm[Hg] BP-Jeanne(mm[Hg]) HR(bpm) [...] 08/15/2013 12:00 AM Decadron, Per 1 Mg [facility]# [address]-96 Reviewed 08/15/2013 12:00 AM Depo-Medrol, Per 80 Mg [facility]#1268-6210-32 Reviewed 11/07/2013 3:16 PM THER/PROPH/DIAG INJ SC/IM [...] BILI 0.70 mg/dLCALCIUM 9.10 mg/dLeGFR >60 mL/min/1.73 [id number] 176.0 mg/dLCHOLESTEROL 150.0 mg/dLHDL 35.0 mg/dLLDL (CALC) [...] 12/07/2015 Adenocarcinoma of prostate, stage 4 12/26/2015 Hypertension Jan 02 2011 8:42AM Hyperlipidemia Jan [...] prostate, stage 4 Dec 26 2015 8:31AM Payers Insurance Name Company Name Plan Name Plan Number Policy Number Policy Group Number Start Date Medicare Part A Medicare Part A [id number] N/A [id number] Friday, 2008 Medicare Part B Medicare Of [place] [id number] Thursday, 1996 Medicare Part A Medicare - Lab/Xray [id number] N/A History of Encounters Visit Date Visit Type Provider 12/26/2015 Office visit Juany Donahue MD 12/07/2015 Procedures Edmund Kervin DO 08/13/2015 Office visit Juany Donahue MD 08/07/2015 Voided Juany Donahue MD 04/03/2015 Office visit Juany Donahue MD 11/22/2014 Office visit Juany Donahue MD 07/17/2014 Office visit Juany Donahue MD 03/13/2014 Office visit Juany Donahue MD 11/07/2013 Office visit Juany Donahue MD 09/19/2013 Hospital Ginette Navarrete MD 08/15/2013 Office visit Faizan Raphael INTERMEDIATE SCHOOL TEACHER 11/11/2012 Office visit Yecenia Alexander INTERMEDIATE SCHOOL TEACHER 10/27/2012 Office visit Celena Crane INTERMEDIATE SCHOOL TEACHER 04/22/2012 Office visit Sean Shell MD 04/14/2012 [facility] Lola Paz MD 04/13/2012 [facility] Lola Paz MD 04/12/2012 [facility] Ginette Navarrete MD 04/12/2012 [facility] Lola Paz MD 02/13/2012 Office visit Sean Shell MD 04/16/2011 Office visit Apryl Branham MD 03/25/2011 Office visit Yecenia Alexander INTERMEDIATE SCHOOL TEACHER 01/08/2011 Office visit Sean Shell MD 12/19/2009 Office visit Salima RODRIGUEZ 12/13/2009 Office visit Sean Shell MD 11/12/2009 Office visit Sean Shell MD 07/06/2009 Office visit Sean Shell MD 06/25/2009 Office visit Sean Shell MD 06/07/2009 Office visit Sean Shell MD
--- OUTSIDE RECORDS SUMMARY | 2017-12-25 08:02 | XMS REPORT ---
Author Author Juany Donahue Organization [facility] Address [address] [place], [place] [address] Care Team Providers Care Public Stenographer Name Role Phone Juany Donahue PCP Unavailable [...] tablet by oral route daily Fish Oil [place] 3-6-9 300-1,000 mg oral capsule,delayed release(DR/EC) take 1 capsule by oral route daily [place] 5-325 mg oral tablet take 1 tablet [...] AM Decadron, Per 1 Mg [facility]# [address]-66 Reviewed 08/15/2013 12:00 AM Depo-Medrol, Per 80 Mg [facility]#2421-1787-62 Reviewed 11/07/2013 3:16 PM THER/PROPH/DIAG INJ SC/IM [...] Adenocarcinoma of prostate Jul 10 2016 8:33PM Payers Insurance Name Company Name Plan Name Plan Number Policy Number Policy Group Number Start Date Medicare Part A Medicare Part A [id number] N/A BCBS [facility] [id number] Friday, 2008 Medicare Part B Medicare Of [place] [id number] Thursday, 1996 Medicare Part A Medicare - Lab/Xray [id number] N/A History of Encounters Visit Date Visit [...] Navarrete MD 08/15/2013 Office visit Faizan Raphael ACOUSTIC INTELLIGENCE SPECIALIST 11/11/2012 Office visit Yecenia Alexander ACOUSTIC INTELLIGENCE SPECIALIST 10/27/2012 Office visit Celena Crane ACOUSTIC INTELLIGENCE SPECIALIST 04/22/2012 Office visit Sean Shell MD 04/14/2012 [facility] Lola Paz MD 04/13/2012 [facility] Lola Paz MD 04/12/2012 [facility] Ginette Navarrete MD 04/12/2012 [facility] Lola Paz MD 02/13/2012 Office visit Sean Shell MD 04/16/2011 Office visit Apryl Branham MD 03/25/2011 Office visit Yecenia Alexander ACOUSTIC INTELLIGENCE SPECIALIST 01/08/2011 Office visit Sean Shell MD 12/19/2009 Office visit Salima RODRIGUEZ 12/13/2009 Office visit Sean Shell MD 11/12/2009 Office visit Sean Shell MD 07/06/2009 Office visit Sean Shell MD 06/25/2009 Office visit Sean Shell MD 06/07/2009 Office visit Sean Shell MD
--- OUTSIDE RECORDS SUMMARY | 2017-12-25 08:03 | XMS REPORT ---
Author Author Juany Donahue Organization [facility] Address [address] [place], [place] [phone] Care Team Providers Care Running Instructor Name Role Phone Juany Donahue PCP Unavailable Allergies and Adverse Reactions Name Reaction Notes NO KNOWN DRUG ALLERGIES Plan of Treatment Planned Activity Comments Planned Date Planned Time Plan/Goal ASSAY OF PSA TOTAL 03/27/2015 12:00 AM METABOLIC PANEL TOTAL CA 04/22/2012 [...] Elevated prostate specific antigen (PSA) Active 11/22/2014 Vital Signs Date Time BP-Sys(mm[Hg] BP-Jeanne(mm[Hg]) HR(bpm) [...] 08/15/2013 12:00 AM Decadron, Per 1 Mg [facility]# [address]-66 Reviewed 08/15/2013 12:00 AM Depo-Medrol, Per 80 Mg [facility]#3251-8122-65 Reviewed 11/07/2013 3:16 PM THER/PROPH/DIAG INJ SC/IM [...] BILI 0.70 mg/dLCALCIUM 9.10 mg/dLeGFR >60 mL/min/1.73 [id number] 176.0 mg/dLCHOLESTEROL 150.0 mg/dLHDL 35.0 mg/dLLDL (CALC) [...] 11/22/2014 Elevated prostate specific antigen (PSA) 11/22/2014 Hypertension Jan 02 2011 8:42AM Hyperlipidemia Jan [...] Cancer of prostate Mar 27 2015 11:19AM Payers Insurance Name Company Name Plan Name Plan Number Policy Number Policy Group Number Start Date Medicare Part A Medicare Part A [id number] N/A Bcbs Bcbs [facility] [id number] Friday, 2008 Medicare Part B Medicare [facility] [id number] Thursday, 1996 History of Encounters Visit Date Visit Type Provider 11/22/2014 Office visit Juany Donahue MD 07/17/2014 Office visit Juany Donahue MD 03/13/2014 Office visit Juany Donahue MD 11/07/2013 Office visit Juany Donahue MD 09/19/2013 [facility] Ginette Navarrete MD 08/15/2013 Office visit Faizan Raphael CIA AGENT 11/11/2012 Office visit Yecenia Alexander CIA AGENT 10/27/2012 Office visit Celena Crane CIA AGENT 04/22/2012 Office visit Sean Shell MD 04/14/2012 [facility] Lola Paz MD 04/13/2012 [facility] Lola Paz MD 04/12/2012 [facility] Ginette Navarrete MD 04/12/2012 [facility] Lola Paz MD 02/13/2012 Office visit Sean Shell MD 04/16/2011 Office visit Apryl Branham MD 03/25/2011 Office visit Yecenia Alexander CIA AGENT 01/08/2011 Office visit Sean Shell MD 12/19/2009 Office visit Salima JIMENEZP 12/13/2009 Office visit Sean Shell MD 11/12/2009 Office visit Sean Shell MD 07/06/2009 Office visit Sean Shell MD 06/25/2009 Office visit Sean Shell MD 06/07/2009 Office visit Sean Shell MD
--- OUTSIDE RECORDS SUMMARY | 2017-12-25 08:04 | XMS REPORT ---
Author Author Juany Donahue [facility] Address [address] [place], [place] [phone] Care Team Providers Care Insurance Legal Assistant Name Role Phone Juany Donahue PCP [...] oral route once daily for 30 days [place] 5-325 mg oral tablet take 1 tablet [...] by oral route once daily Fish Oil [place] 3-6-9 300-1,000 mg oral capsule,delayed release(DR/EC) 04/10 [...] 08/15/2013 12:00 AM Decadron, Per 1 Mg [facility]# [address]-36 Reviewed 08/15/2013 12:00 AM Depo-Medrol, Per 80 Mg [facility]#4189-6084-48 Reviewed 11/07/2013 3:16 PM THER/PROPH/DIAG INJ SC/IM [...] Vis Given Vis Pub CVX Influenza 02/18/2017 [employer] [facility] Fluzone High-Dose Not Entered Not Entered [...] Well adult exam Apr 10 2017 10:29AM Payers Insurance Name Company Name Plan Name Plan Number Policy Number Policy Group Number Start Date Medicare Part A Medicare Part A [id number] N/A [facility] [id number] Friday, 2008 Medicare Part B Medicare Of [place] [id number] Thursday, 1996 Medicare Part A Medicare - Lab/Xray [id number] N/A History of Encounters Visit Date Visit [...] Navarrete MD 08/15/2013 Office visit Faizan Raphael CLIENT ACCOUNT ASSISTANT 11/11/2012 Office visit Yecenia Alexander CLIENT ACCOUNT ASSISTANT 10/27/2012 Office visit Celena Crane CLIENT ACCOUNT ASSISTANT 04/22/2012 Office visit Sean Shell MD 04/14/2012 Hospital Lola Paz MD 04/13/2012 Hospital Lola Paz MD 04/12/2012 Hospital Ginette Navarrete MD 04/12/2012 Hospital Lola Paz MD 02/13/2012 Office visit Sean Shell MD 04/16/2011 Office visit Apryl Branham MD 03/25/2011 Office visit Yecenia Alexander CLIENT ACCOUNT ASSISTANT 01/08/2011 Office visit Sean Shell MD 12/19/2009 Office visit Salima RODRIGUEZ 12/13/2009 Office visit Sean Shell MD 11/12/2009 Office visit Sean Shell MD 07/06/2009 Office visit Sean Shell MD 06/25/2009 Office visit Sean Shell MD 06/07/2009 Office visit Sean Shell MD
--- OUTSIDE RECORDS SUMMARY | 2017-12-25 08:05 | XMS REPORT ---
Author Author Tierra Fox [facility] Address [address] [place] [phone] Care Team Providers Care Career Professional Name Role Phone Tierra Fox PCP Emory Tony PreferredProvider Allergies and Adverse [...] route 3 times a day (before meals) Levaquin 750 mg oral tablet 09/29/2017 10/04/2017 take 1 tablet (750 mg) by oral route once daily for 5 days albuterol sulfate 2.5 mg /3 mL (0.083 %) inhalation solution for nebulization 09/29/2017 10/13/2017 inhale 3 milliliters (2.5 mg) by nebulization route 3 times per day for 14 days Name Start Date Expiration Date SIG Comments [...] oral route once daily for 30 days [place] 5-325 mg oral tablet take 1 tablet [...] by oral route once daily Fish Oil [place] 3-6-9 300-1,000 mg oral capsule,delayed release(DR/EC) 04/10 [...] HC BMI BSA BMI Percentile O2 Sat(%) 09/29/2017 9:29:00 AM 120 mmHg 80 mmHg 98 bpm 20 rpm 97.5 F 172.125 lbs 68 in 26.1712 kg/m 1.9354 m 98 % 09/23/2017 10:01:00 AM 152 mmHg 88 mmHg 85 bpm 20 rpm 97.5 F 172 lbs 68 in 26.15 kg/m2 1.93 m2 97 % 09/23/2017 8:49:00 AM 130 mmHg 82 mmHg 78 bpm 18 rpm 97.3 F 173 lbs 68 in 26.3043 kg/m 1.9403 m 87 % 09/22/2017 8:23:00 AM 130 mmHg 78 mmHg 82 bpm 20 rpm 97.4 F 173 lbs 68 in 26.30 kg/m2 1.94 m2 96 % 04/10/2017 10:26:00 AM [...] TOTAL Reviewed 09/22/2017 12:00 AM LIPID PANEL Returned 09/23/2017 12:00 AM Lupron 7.5mg Reviewed 09/29/2017 12:00 AM RADIOLOGIC EXAM CHEST 2 VIEWS FRONTAL&LATERAL Returned 09/29/2017 12:00 AM Solu-Medrol, Up to 125 Mg [facility]# 2957-2050-44 Reviewed 08/15/2013 12:00 AM THER/PROPH/DIAG INJ SC/IM Reviewed 08/15/2013 12:00 AM Decadron, Per 1 Mg [facility]# [address]-81 Reviewed 08/15/2013 12:00 AM Depo-Medrol, Per 80 Mg [facility]#9235-8140-08 Reviewed 11/07/2013 3:16 PM THER/PROPH/DIAG INJ SC/IM [...] 2017 9:33AM Cough Sep 29 2017 9:33AM Payers Insurance Name Company Name Plan Name Plan Number Policy Number Policy Group Number Start Date Medicare RHC Medicare RHC [id number] N[id number] Friday, 2008 Medicare Part A Medicare Part A [id number] N/A Medicare Part A Medicare - Lab/Xray [id number] N/A Medicare Part B Medicare Of [place] [id number] Thursday, January 181996 History of Encounters Visit Date Visit Type Provider 09/29/2017 Office visit Tierra Fox APRN 09/23/2017 Office visit Roland Levi MD 09/23/2017 Office visit Amadeo Nielsen MD 09/22/[address] Emory Tony MD 09/16/2017 [facility] Roland Levi MD 05/19/2017 Office visit [...] Navarrete MD 08/15/2013 Office visit Faizan Raphael GLOBAL ACCOUNT MANAGER 11/11/2012 Office visit Yecenia Alexander GLOBAL ACCOUNT MANAGER 10/27/2012 Office visit Celena Crane GLOBAL ACCOUNT MANAGER 04/22/2012 Office visit Sean Shell MD 04/14/2012 Hospital Lola Paz MD 04/13/2012 [facility] Lola Paz MD 04/12/2012 [facility] Ginette Navarrete MD 04/12/2012 [facility] Lola Paz MD 02/13/2012 Office visit Sean Shell MD 04/16/2011 Office visit Apryl Branham MD 03/25/2011 Office visit Yecenia Alexander GLOBAL ACCOUNT MANAGER 01/08/2011 Office visit Sean Shell MD 12/19/2009 Office visit Salima JIMENEZP 12/13/2009 Office visit Sean Shell MD 11/12/2009 Office visit Sean Shell MD 07/06/2009 Office visit Sean Shell MD 06/25/2009 Office visit Sena Shell MD 06/07/2009 Office visit Sean Shell MD
--- OUTSIDE RECORDS SUMMARY | 2017-12-25 08:06 | XMS REPORT ---
Author Author Juany Donahue Organization [facility] Address [address] [place], [place] [address] Care Team Providers Care Mold Forms Builder Name Role Phone Juany Donahue PCP Unavailable [...] 08/15/2013 12:00 AM Decadron, Per 1 Mg [facility]# [address]-80 Reviewed 08/15/2013 12:00 AM Depo-Medrol, Per 80 Mg [facility]#0599-3061-76 Reviewed 11/07/2013 3:16 PM THER/PROPH/DIAG INJ SC/IM [...] BILI 0.70 mg/dLCALCIUM 9.10 mg/dLeGFR >60 mL/min/1.73 [id number] 176.0 mg/dLCHOLESTEROL 150.0 mg/dLHDL 35.0 mg/dLLDL (CALC) [...] Adenocarcinoma of prostate Apr 03 2015 10:06AM Payers Insurance Name Company Name Plan Name Plan Number Policy Number Policy Group Number Start Date Medicare Part A Medicare Part A [id number] N/A Bcbs Bcbs [facility] [id number] Friday, 2008 Medicare Part B Medicare Of [place] [id number] Thursday, 1996 History of Encounters Visit Date Visit Type Provider 04/03/2015 Office visit Juany Donahue MD 11/22/2014 Office visit Juany Donahue MD 07/17/2014 Office visit Juany Donahue MD 03/13/2014 Office visit Juany Donahue MD 11/07/2013 Office visit Juany Donahue MD 09/19/2013 [facility] Ginette Navarrete MD 08/15/2013 Office visit Faizan Raphael SOAKER HIDES 11/11/2012 Office visit Yecenia Alexander SOAKER HIDES 10/27/2012 Office visit Celena Crane SOAKER HIDES 04/22/2012 Office visit Sean Shell MD 04/14/2012 [facility] Lola Paz MD 04/13/2012 [facility] Lola Paz MD 04/12/2012 [facility] Ginette Navarrete MD 04/12/2012 [facility] Lola Paz MD 02/13/2012 Office visit Sean Shell MD 04/16/2011 Office visit Apryl Branham MD 03/25/2011 Office visit Yecenia Alexander SOAKER HIDES 01/08/2011 Office visit Sean Shell MD 12/19/2009 Office visit Salima RODRIGUEZ 12/13/2009 Office visit Sean Shell MD 11/12/2009 Office visit Sean Shell MD 07/06/2009 Office visit Sean Shell MD 06/25/2009 Office visit Sean Shell MD 06/07/2009 Office visit Sean Shell MD
--- OUTSIDE RECORDS SUMMARY | 2017-12-25 08:06 | XMS REPORT ---
Author Roland Alexander [facility] Address [address] [place], [place] [address] Care Team Providers Care Middle [employer] Baseball Coach Name Role Phone Roland Levi PCP AleishaTammy [...] oral route once daily for 30 days [place] 5-325 mg oral tablet take 1 tablet [...] by oral route once daily Fish Oil [place] 3-6-9 300-1,000 mg oral capsule,delayed release(DR/EC) 04/10 [...] 08/15/2013 12:00 AM Decadron, Per 1 Mg [facility]# [address]-64 Reviewed 08/15/2013 12:00 AM Depo-Medrol, Per 80 Mg [facility]#8303-5811-63 Reviewed 11/07/2013 3:16 PM THER/PROPH/DIAG INJ SC/IM [...] 8:27AM Prostate cancer Sep 23 2017 8:51AM Payers Insurance Name Company Name Plan Name Plan Number Policy Number Policy Group Number Start Date Medicare Part B Medicare Emi Albarado [id number] Thursday, 1996 BCBS Bcbs Emi Albarado [id number] Friday, 2008 Medicare Part A Medicare Part A [id number] N/A Medicare Part A Medicare - Lab/Xray [id number] N/A Medicare RHC Medicare RHC [id number] N/A History of Encounters Visit Date Visit [...] Raphael APRN 11/11/2012 Office visit Yecenia Alexander SALES AND LEASING CONSULTANT 10/27/2012 Office visit Celena Crane SALES AND LEASING CONSULTANT 04/22/2012 Office visit Sean Shell MD 04/14/2012 Hospital Lola Paz MD 04/13/2012 [facility] Lola Paz MD 04/12/2012 [facility] Ginette Navarrete MD 04/12/2012 Hospital Lola [...]
--- OUTSIDE RECORDS SUMMARY | 2017-12-25 08:07 | XMS REPORT ---
Author Edmund Fuentes [facility] Address [address] [place], [place] [address] Care Team Providers Care Director Hair Name Role Phone Edmund Galeana PCP Unavailable [...] tablet by oral route daily Fish Oil [place] 3-6-9 300-1,000 mg oral capsule,delayed release(DR/EC) take 1 capsule by oral route daily [place] 5-325 mg oral tablet take 1 tablet [...] Decadron, Per 1 Mg [facility]# [address]-51 Reviewed 08/15/2013 12:00 AM Depo-Medrol, Per 80 Mg [facility]#8299-9379-96 Reviewed 11/07/2013 3:16 PM THER/PROPH/DIAG INJ SC/IM [...] BILI 0.70 mg/dLCALCIUM 9.10 mg/dLeGFR >60 mL/min/1.73 [id number] 176.0 mg/dLCHOLESTEROL 150.0 mg/dLHDL 35.0 mg/dLLDL (CALC) [...] Date Medicare Part A Medicare Part A [id number] N/A BCBS [facility] [id number] Friday, 2008 Medicare Part B Medicare Of [place] [id number] Thursday, 1996 Medicare Part A Medicare - Lab/Xray [id number] N/A History of Encounters Visit Date Visit [...] Navarrete MD 08/15/2013 Office visit Faizan Raphael A CLASS LINEMAN 11/11/2012 Office visit Yecenia Alexander A CLASS LINEMAN 10/27/2012 Office visit Celena Crane A CLASS LINEMAN 04/22/2012 Office visit Sean Shell MD 04/14/2012 [facility] Lola Paz MD 04/13/2012 [facility] Lola Paz MD 04/12/2012 [facility] Ginette Navarrete MD 04/12/2012 [facility] Lola Paz MD 02/13/2012 Office visit Sean Shell MD 04/16/2011 Office visit Apryl Branham MD 03/25/2011 Office visit Yecenia Alexander A CLASS LINEMAN 01/08/2011 Office visit Sean Shell MD 12/19/2009 Office visit Salima JIMENEZP 12/13/2009 Office visit Sean Shell MD 11/12/2009 Office visit Sean Shell MD 07/06/2009 Office visit Sean Shell MD 06/25/2009 Office visit Sean Shell MD 06/07/2009 Office visit Sean Shell MD
--- OUTSIDE RECORDS SUMMARY | 2017-12-25 08:07 | XMS REPORT | Continuity of Care Document ---
Author Author [facility] Organization [facility] Address Unknown Phone Unavailable Allergies Active Description Code Type Severity Reaction Onset Reported/Identified Relationship to Patient Clinical Status Yes Iodinated Contrast Media - IV Dye 7 Drug Allergy N/A N/A Confirmed or Verified Yes No Known Medication Allergies Drug N/A N/A Yes No Known Drug Allergies [id number] N/A N/A Yes No Known Medication Allergies NKMA N/A N/A Medications Medication Packaging Start Date Stop Date Route Dosage Sig potassium chloride(potassium chloride 20 mEq oral tablet, extended release) 1 tabs 10/29/2015 Oral 20 mEq 20 mEq=1 tabs, Oral, Daily, 180 tabs, 0 Refill(s) amLODIPine(amLODIPine) 2015 Oral 5 mg 5 mg, Oral, Daily, 0 Refill(s) omeprazole(omeprazole) 2015 Oral 20 mg 20 mg , Oral, Daily, 0 Refill(s) lisinopril-hydrochlorothiazide(lisinopril-hydrochlorothiazide 20 mg -25 mg oral tablet) 0.5 tabs 10/29/2015 Oral 0.5 tabs, Oral, Daily , 30 tabs, 0 Refill(s) bicalutamide(bicalutamide) 2015 Oral 50 mg 50 mg , Oral, q24hr, 0 Refill(s) aspirin(aspirin) 10/29/2015 Oral 81 mg 81 mg, Oral, Daily, 0 Refill(s) docusate(Colace) 1 caps 10/29/2015 10/29/2015 Oral 100 mg 100 mg=1 caps, Oral, BID metoclopramide(metoclopramide) 2 mL 10/29/2015 10/29/2015 IV Push 10 mg 10 mg=2 mL, IV Push, q6hr, PRN: Nausea or Vomiting ondansetron(Zofran) 2 mL 201510/29/2015 IV Push 4 mg 4 mg=2 mL, IV Push, q6hr, PRN: Nausea polyethylene glycol 3350(MiraLax) 1 packets 10/29/2015 10/29/2015 Oral 17 g 17 g=1 packets, Oral, Daily HYDROmorphone(Dilaudid) 201510/29/2015 IV Push 0.5 - 1 mg, IV Push, q2hr, PRN: Pain Severe (7-10) oxyCODONE-acetaminophen(Percocet 5/325 oral tablet) 2 tabs 10/29/2015 10/29/2015 Oral 2 tabs, Oral, q4hr, PRN: Pain Moderate (4-6) Problems Date Dx Coded Attending Type Code Diagnosis Diagnosed By 10/16/2014 LEON NGUYEN MD, Ot 185 10/26/2014 LEON NGUYEN MD, Ot 185 09/26/2015 LEON NGUYEN MD, Ot C61 MALIGNANT NEOPLASM OF PROSTATE 10/12/2015 LEON NGUYEN MD, Ot C61 MALIGNANT NEOPLASM OF PROSTATE 10/25/2015 LEON NGUYEN MD, Ot C61 MALIGNANT NEOPLASM OF PROSTATE 11/03/2015 Darrell Otero Reason C61 Malignant neoplasm of prostate 11/03/2015 Darrell Otero Final I10 Essential (primary) hypertension 11/03/2015 Darrell Otero Z79.82 penitentiary (current) use of aspirin 11/16/2015 Darrell Otero Malignant neoplasm of prostate Darrell Otero 11/19/2015 Darrell Otero Malignant neoplasm of prostate Darrell Otero 05/11/2017 P C61 Malignant neoplasm of prostate 05/15/2017 P C61 Malignant neoplasm of prostate 05/15/2017 P C61 Malignant neoplasm of prostate 09/29/2017 P C61 Malignant neoplasm of prostate Procedures Code Description [place] [address] Insertion of tunneled centrally inserted central venous catheter, without s 10/29/2015 96867 Insertion of tunneled centrally inserted central venous catheter, without subcutaneous port or pump; Darrell Otero 11/16/2015 78960 Fluoroscopic guidance for central venous access device placement, replacement (catheter only or comp Darrell Otero 11/16/2015 51272 Insertion of tunneled centrally inserted central venous catheter, without subcutaneous port or pump; Darrell Otero 12/13/2015 71072 Fluoroscopic guidance for central venous access device placement, replacement (catheter only or comp HarrietdiogoDarrell 12/13/2015 Results Test Result Range CBC WITH DIFF - 01/08/14 00:00 HCT 43.0 % 36.9-47.0 HGB 14.5 G/DL 12.0-16.0 LYMPH 8.0 % 20-40 MCH 32.2 PG 27-31 MCHC 33.7 G/DL 33-37 MCV 95.3 FL 81-99 MONO 6.0 % 0-10 MPV 10.1 FL 7.3-10.4 PLT 196 10^3u 130-400 RBC 4.5 10^6u 4.2-5.4 RDW 12.8 % 11.5-15.5 WBC 22.7 10^3u 4.8-10.8 SEGS 86.0 % 40-70 CMP - 01/08/14 00:00 ALB 3.2 G/DL 3.5-5 ALP 81 IU/L 25-72 ALT 16 IU/L 12-65 AST 16 IU/L 10-42 BCR 10.4 10-20 BUN 14 MG/DL 7-18 CA 9.1 MG/DL 8.4-10.2 CL 92 MEQ/L 98-107 CO2 26.3 MEQ/L 22-28 CREA 1.35 MG/DL 0.6-1.0 EGFR 38 eGFR >=60 GLU 122 MG/DL 70-105 K 3.7 MEQ/L 3.5-5.1 NA 128 MEQ/L 134-145 OSMSC 258.9 MOSML 280-300 TBIL 1.3 MG/DL 0.1-1.0 TP 7.0 G/DL 6.0-8.3 Albumin/Globulin Ratio 0.8 0-8 Anion Gap 9.7 8-16 LACTIC ACID - 01/08/14 00:00 LA 1.7 MMOLL 0.4-2.0 UA - 01/08/14 00:00 PH 6.5 4.5-8.0 SG 1.023 1.003-1.035 UABILI 2+ UABLD 3+ UACOLOR YEL UAGLU TRACE UAKET TRACE UALEUK 1+ UANIT POSITIVE UAURO 4.0 0-0.2 CLARITY CLD PROTEIN 3+ UA WBC R2030 UA RBC TNTC SQUAMOUS EPITHELIAL CELLS FEW BACTERIA 1+ Short Sample unconcentrated sample. BMP - 01/09/14 00:00 BCR 10.9 10-20 BUN 11 MG/DL 7-18 CA 7.9 MG/DL 8.4-10.2 CL 99 MEQ/L 98-107 CO2 26.0 MEQ/L 22-28 CREA 1.01 MG/DL 0.6-1.0 EGFR 53 eGFR >=60 GLU 101 MG/DL 70-105 K 3.5 MEQ/L 3.5-5.1 NA 131 MEQ/L 134-145 OSMSC 262.2 MOSML 280-300 Anion Gap 6.0 8-16 CBC WITH DIFF - 01/09/14 00:00 BANDS 2.0 % 0-5 HCT 34.4 % 36.9-47.0 HGB 11.6 G/DL 12.0-16.0 LYMPH 3.0 % 20-40 MCH 32.0 PG 27-31 MCHC 33.7 G/DL 33-37 MCV 95.0 FL 81-99 MONO 2.0 % 0-10 MPV 10.5 FL 7.3-10.4 PLT 165 10^3u 130-400 RBC 3.6 10^6u 4.2-5.4 RDW 12.8 % 11.5-15.5 WBC 17.6 10^3u 4.8-10.8 SEGS 93.0 % 40-70 CBC - 01/10/14 00:00 HCT 36.4 % 36.9-47.0 HGB 12.4 G/DL 12.0-16.0 MCH 32.3 PG 27-31 MCHC 34.1 G/DL 33-37 MCV 94.8 FL 81-99 MPV 10.3 FL 7.3-10.4 PLT 184 10^3u 130-400 RBC 3.8 10^6u 4.2-5.4 RDW 12.7 % 11.5-15.5 WBC 13.2 10^3u 4.8-10.8 CMP - 01/10/14 00:00 ALB 2.5 G/DL 3.5-5 ALP 74 IU/L 25-72 ALT 17 IU/L 12-65 AST 17 IU/L 10-42 BCR 8.3 10-20 BUN 7 MG/DL 7-18 CA 8.4 MG/DL 8.4-10.2 CL 100 MEQ/L 98-107 CO2 24.1 MEQ/L 22-28 CREA 0.84 MG/DL 0.6-1.0 EGFR 65 eGFR >=60 GLU 106 MG/DL 70-105 K 3.3 MEQ/L 3.5-5.1 NA 134 MEQ/L 134-145 OSMSC 266.6 MOSML 280-300 TBIL 0.7 MG/DL 0.1-1.0 TP 5.9 G/DL 6.0-8.3 Albumin/Globulin Ratio 0.7 0-8 Anion Gap 9.9 8-16 Encounters ACCT No. Visit Date/Time Discharge Status Pt. Type Provider Facility Loc./Unit Complaint [id number] 10/13/2017 08:40:00 10/13/2017 23:59:59 DIS Outpatient Apryl Floyd [facility] [id number] 10/13/2017 08:30:00 10/13/2017 23:59:59 CLS Emergency [facility] [place] ER VISIT [id number] 08/25/2017 09:21:06 08/25/2017 23:59:59 DIS Outpatient Apryl Floyd [facility] [id number] 07/21/2017 08:58:31 07/21/2017 23:59:59 DIS Outpatient Apryl Floyd [facility] [id number] 06/09/2017 08:01:50 06/09/2017 23:59:59 DIS Outpatient Apryl Floyd [facility] [id number] 05/22/2017 08:54:51 05/22/2017 23:59:59 DIS Outpatient Apryl Floyd [facility] [id number] 01/08/2014 11:24:00 01/10/2014 12:45:00 DIS Inpatient ELIAS LAZARO [facility] 2F [id number] 01/08/2014 09:20:00 01/08/2014 11:24:00 DIS Emergency BIRD BORJAS [facility] EMR [id number] 03/19/2013 00:00:00 Document Registration [id number] 09/27/2014 08:49:05 ACT Document Registration [id number] 12/14/2017 16:14:02 Document Registration [id number] 10/07/2017 07:45:23 Document Registration [id number] 09/29/2017 10:25:54 Document Registration [id number] 09/29/2017 08:18:12 Document Registration [id number] 09/16/2017 16:04:24 Document Registration [id number] 09/16/2017 15:44:30 Document Registration [id number] 08/17/2017 13:20:42 Document Registration [id number] 05/15/2017 09:20:53 Document Registration [id number] 05/06/2017 09:53:30 Document Registration [id number] 04/06/2017 08:38:34 Document Registration [id number] 03/11/2017 08:03:15 Document Registration [id number] 03/04/2017 11:48:43 Document Registration [id number] 12/11/2016 07:50:40 Document Registration [id number] 12/10/2016 09:10:05 Document Registration [id number] 11/13/2017 09:08:19 11/13/2017 23:59:59 CLS Outpatient Edmund Galeana [id number] 10/30/2017 11:03:14 10/30/2017 23:59:59 CLS Outpatient Edmund Galeana [id number] 10/15/2017 12:48:46 10/15/2017 23:59:59 CLS Outpatient Ginette Navarrete [id number] 09/29/2017 12:42:16 09/29/2017 23:59:59 CLS Outpatient Roland Levi [id number] 09/29/2017 10:22:07 09/29/2017 23:59:59 CLS Outpatient Tierra Fox [id number] 09/23/2017 10:23:22 09/23/2017 23:59:59 CLS Outpatient Roland Levi [id number] 09/23/2017 09:23:51 09/23/2017 23:59:59 CLS Outpatient Amadeo Nielsen [id number] 09/22/2017 09:06:00 09/22/2017 23:59:59 CLS Outpatient Emory Tony [id number] 05/19/2017 09:02:15 05/19/2017 23:59:59 CLS Outpatient Juany Donahue [id number] 04/10/2017 10:55:24 04/10/2017 23:59:59 CLS Outpatient Tammy Arvizu [id number] 01/13/2017 08:51:43 01/13/2017 23:59:59 CLS Outpatient Godfrey, V S [id number] 09/02/2016 11:47:13 09/02/2016 23:59:59 CLS Outpatient Godfrey, V S [id number] 08/13/2016 10:41:57 08/13/2016 23:59:59 CLS Outpatient Godfrey, V S [id number] 07/08/2016 08:56:09 07/08/2016 23:59:59 CLS Outpatient Godfrey, V S [id number] 04/29/2016 10:01:36 04/29/2016 23:59:59 CLS Outpatient Godfrey, V S [id number] 12/07/2015 11:39:08 12/07/2015 23:59:59 CLS Outpatient Edmund Galeana [id number] 04/03/2015 10:46:11 04/03/2015 23:59:59 CLS Outpatient Godfrey, V S [id number] 11/27/2014 22:31:43 11/27/2014 23:59:59 CLS Outpatient Godfrey, V S [id number] 07/17/2014 10:06:58 07/17/2014 23:59:59 CLS Outpatient Godfrey, V S [id number] 03/13/2014 09:58:12 03/13/2014 23:59:59 CLS Outpatient Godfrey, V S [id number] 11/07/2013 09:55:27 11/07/2013 23:59:59 CLS Outpatient Godfrey, V S [id number] 09/29/2013 08:47:40 09/29/2013 23:59:59 CLS Outpatient Ginette Navarrete [id number] 08/15/2013 09:57:18 08/15/2013 23:59:59 CLS Outpatient Faizan Raphael [id number] 08/08/2013 18:38:44 08/08/2013 23:59:59 CLS Outpatient Sean Shell [id number] 04/18/2013 10:15:36 Document Registration [id number] 12/05/2015 13:47:53 12/05/2015 23:59:59 CLS Outpatient Darrell Otero [id number] 09/21/2015 09:01:00 09/21/2015 23:59:59 CLS Outpatient LEON NGUYEN MD [facility] ONC [id number] 09/27/2014 08:49:00 09/27/2014 23:59:59 CLS Outpatient LEON NGUYEN MD [facility] ONC [id number] 05/16/2013 09:09:00 05/16/2013 23:59:59 CLS Outpatient [id number] 10/29/2015 10:58:00 10/29/2015 15:33:00 DIS Outpatient Darrell Otero [facility] on [facility] Prostate cancer [id number] 10/30/2015 05:17:20 Document Registration
[2017-12-25] MEDS ORDERED: CATHETER FLUSH 10 ML SYR IV PRN (08:15)
[2017-12-25 08:28] LABS: BASOPHILS % (AUTO) 0 % (0-10); EOSINOPHILS # (AUTO) 0.1 10^3/uL (0.0-0.3); EOSINOPHILS % (AUTO) 1 % (0-10); HEMATOCRIT 31 % (40-54); HEMOGLOBIN 10.5 G/DL (13.3-17.7); LYMPHOCYTES # (AUTO) 1.3 X 10^3 (1.0-4.0); LYMPHOCYTES % (AUTO) 17 % (12-44); MEAN CORPUSCULAR HEMOGLOBIN 33 PG (25-34); MEAN CORPUSCULAR HGB CONC 34 G/DL (32-36); MEAN CORPUSCULAR VOLUME 98 FL (80-99); MEAN PLATELET VOLUME 9.6 FL (7.4-10.4); MONOCYTES % (AUTO) 13 % (0-12); NEUTROPHILS # (AUTO) 5.3 X 10^3 (1.8-7.8); NEUTROPHILS % (AUTO) 69 % (42-75); PLATELET COUNT 193 10^3/uL (130-400); RED BLOOD COUNT 3.17 10^6/uL (4.35-5.85); RED CELL DISTRIBUTION WIDTH 24.7 % (10.0-14.5); WHITE BLOOD COUNT 7.7 10^3/uL (4.3-11.0)
[2017-12-25 08:43] LABS: BUN/CREATININE RATIO 31; CALCIUM 9.6 MG/DL (8.5-10.1); CARBON DIOXIDE 28 MMOL/L (21-32); CHLORIDE 99 MMOL/L (98-107); CREATININE SERUM 0.71 MG/DL (0.60-1.30); GFR ESTIMATED > 60; GLUCOSE 95 MG/DL (70-105); POTASSIUM 3.4 MMOL/L (3.6-5.0); SODIUM 138 MMOL/L (135-145)
[2017-12-25] MEDS ORDERED: LACTATED RINGERS 1,000 ML IV PRN (08:49)
[2017-12-25] MEDS ORDERED: FAMOTIDINE 20MG/2ML IV (PEPCID) IV ONE (09:00)
[2017-12-25] MEDS ORDERED: ONDANSETRON 4 MG/2 ML (SDV) Z0FRAN IV ONE (09:00)
[2017-12-25] MEDS ORDERED: DEXAMETHASONE 10 MG/ML (DECADRON) 1 ML VIAL ONE (09:48)
[2017-12-25] MEDS ORDERED: LIDOCAINE PF 2% 5 ML (XYLOCAINE) VIAL ONE (09:48)
[2017-12-25] MEDS ORDERED: fentaNYL INJECTION 100 MCG/2 ML AMP ONE (09:48)
[2017-12-25] MEDS ORDERED: proPOfol 200 MG/20 ML (DIPRIVAN) VIAL IV ONE (09:48)
[2017-12-25] MEDS ORDERED: ONDANSETRON 4 MG/2 ML (SDV) Z0FRAN ONE (09:48)
[2017-12-25] MEDS ORDERED: SEVOFLURANE (ULTANE) 15 ML INHAL SOLN ONE (09:48)
--- NOTE | 2017-12-25 09:50 | Progress Note-Pre Operative ---
Pre-Operative Progress Note H&P Reviewed The H&P was reviewed, patient examined and no changes noted. Date Seen by Provider: Dec 25, 2017 Time Seen by Provider: 09:45 Date H&P Reviewed: Dec 25, 2017 Time H&P Reviewed: 09:45 Pre-Operative Diagnosis: Left Cheek Abscess SHAKIR CUELLO MD Dec 25, 2017 9:50 am
[2017-12-25] MEDS ORDERED: LIDOCAINE/EPI 1%-1:200,000 (XYLOCAINE) 10 ML VIAL ONE (10:02)
[2017-12-25] MEDS ORDERED: ROCURONIUM 10 MG/ML 5 ML SYRINGE IV ONE (10:04)
[2017-12-25] MEDS ORDERED: CLINDAMYCIN 600 MG/4ML (CLEOCIN) VIAL ONE ×2 (10:29→11:45)
[2017-12-25] MEDS ORDERED: GLYCOPYRROLATE 0.2 MG/ML (ROBINUL) 2 ML VIAL ONE (10:35)
[2017-12-25] MEDS ORDERED: NEOSTIGMINE 1 MG/ML 5 ML SYRINGE ONE (10:35)
--- NOTE | 2017-12-25 10:39 | Progress Note-Post Operative ---
Post-Operative Progess Note Surgeon (s)/Certified Legal Secretary Specialist (s) Surgeon SHAKIR CUELLO MD Certified Legal Secretary Specialist n/a Pre-Operative Diagnosis Left Cheek Abscess Post-Operative Diagnosis same Post-Op Procedure Note Date of Procedure: Dec 25, 2017 Name of Procedure Performed: I/D Left Cheek Abscess Description & Findings Description and Findings: n/a Anesthesia Type get Estimated Blood Loss minimal Packing none. Specimen(s) collected/removed arobic anaerobic cutlures to lab SHAKIR CUELLO MD Dec 25, 2017 10:39 am
[2017-12-25] MEDS ORDERED: HYDROcodone/APAP 5 MG/325 MG (LORTAB) TAB PO PRN (10:45)
[2017-12-25] MEDS ORDERED: ACETAMINOPHEN 325 MG TABLET PO PRN (10:45)
[2017-12-25] MEDS ORDERED: ONDANSETRON 4 MG/2 ML (SDV) Z0FRAN IVP PRN (11:00)
[2017-12-25] MEDS ORDERED: HYDROmorphone 2 MG/ML VIAL (DILAUDID) IV ONE (11:00)
[2017-12-25] MEDS ORDERED: CLIN300C3 PO (11:43)
[2017-12-25 11:45] VITALS: BP 162/97
[2017-12-25 11:46] VITALS: BP 162/97
[2017-12-25 12:15] VITALS: BP 151/96
--- NOTE | 2017-12-25 12:28 | Anesthesia-General Post-Op ---
General Patient Condition Mental Status/LOC: Same as Preop Cardiovascular: Satisfactory Nausea/Vomiting: Absent Respiratory: Satisfactory Pain: Controlled Complications: Absent Post Op Complications Complications None Follow Up Care/Instructions Patient Instructions None needed. Anesthesia/Patient Condition Patient Condition Patient was seen and he was doing well, no complaints, stable vital signs, no apparent adverse anesthesia problems. HARESH FISH DO Dec 25, 2017 12:28
[2017-12-25 13:15] VITALS: BP 156/95
[2017-12-25 13:50] VITALS: BP 156/95
== END 2017-12-25 13:50 | disposition home or self-care (01) ==
LOC: SDC 07:40
PROVIDERS: ATTEND Otolaryngology Otolaryngology/Facial Plastic Surgery
DX: K12.2 Cellulitis and abscess of mouth (principal); E78.5 Hyperlipidemia, unspecified; I11.9 Hypertensive heart disease without heart failure; I50.9 Heart failure, unspecified; G47.33 Obstructive sleep apnea (adult) (pediatric); J44.9 Chronic obstructive pulmonary disease, unspecified; K21.9 Gastro-esophageal reflux disease without esophagitis; Z85.46 Personal history of malignant neoplasm of prostate; Z79.82 Long term (current) use of aspirin; Z79.52 Long term (current) use of systemic steroids; Z99.81 Dependence on supplemental oxygen
CPT/HCPCS: 36415; 80048; 85025; 87070; 87075; 87077; 87081; 87185; 87205; 93005